=== PATIENT | female | born 1960 | race Caucasian/White ===

== ENCOUNTER 2017-02-13 11:52 | Inpatient (IN) | payer MEDICARE, MEDICAID ==
[~2017-02-13] VITALS: Ht 160 cm; Wt 37.6 kg
--- NOTE | ~2017-02-13 | CON ---
PATIENT'S NAME: CONCHITA GREENE [facility] AGE: 56 Y [address] ROOM: [place] [address] LOCATION: [facility] ADMIT DATE: 02/13/2017 Consultation DISCHARGE DATE: FAMILY PHYSICIAN: Physician, Unknown ATTENDING PHYSICIAN: Lizette Shane DATE OF CONSULTATION: 02/14/2017 CARDIOLOGY CONSULT REASON FOR CARDIOLOGY CONSULT: Shortness of breath, increased proBNP, and questionable congestive heart failure. HISTORY OF PRESENT ILLNESS: This is a 56-year-old female, admitted with complaints of shortness of breath and altered mental status after being evaluated by her primary care provider. She presents to the emergency department after the primary care provider noted shortness of breath as well as decreased mental acuity. In the emergency department, she continued to answer questions very vaguely. Today, she states she still has complaints of shortness of breath the same as when she was admitted, and intermittently states "I hurt." In between her hurt statement, she is eating breakfast, and denies any nausea or vomiting. A majority of her medical history is obtained from chart review due to the patient's nonspecificity when questioned about health status and presentation to the hospital. At the time of this consult, she is resting comfortably in chair, appears to be in mild discomfort with some shortness of breath noted. PAST MEDICAL HISTORY: 1. Hypertension. 2. History of lung cancer with pneumonectomy in 2008. 3. Renal cancer with a left partial nephrectomy in 2016. FAMILY HISTORY: There is noted history of a grandmother with breast cancer and a grandfather with lung cancer, and an another grandfather with colon cancer. SOCIAL HISTORY: The patient is a former cigarette smoker. She smoked 1 pack of cigarettes per day for a total of 30 years and quit smoking in 2010. No noted history of alcohol or illicit drug use. CURRENT MEDICATIONS: 1. Protonix 40 mg IV daily. 2. Sodium chloride IV. PATIENT'S NAME: CONCHITA GREENE [facility] AGE: 56 Y [address] ROOM: [place] [address] LOCATION: [facility] ADMIT DATE: 02/13/2017 Consultation DISCHARGE DATE: FAMILY PHYSICIAN: Physician, Unknown ATTENDING PHYSICIAN: Lizette Shane 3. Lipitor 80 mg p.o. daily in the evening. MEDICATION ALLERGIES: 1. Penicillin causing hives. 2. Morphine causing hives. REVIEW OF SYSTEMS: Pertinent positive review of systems listed in the HPI. All other review of systems evaluated and negative. DIAGNOSTICS: [facility] evaluation shows sodium of 138, potassium 4.9, BUN of 5, creatinine 0.8, and a glucose of 116. There was a CK-MB of 1.3, and troponin I of less than 0.04. PHYSICAL EXAMINATION: VITAL SIGNS: Temp 97.7, pulse 79, respirations 18, blood pressure 163/88, and O2 saturation 96% on 1 L nasal cannula. The patient weighs 35.5 Kg. SKIN: Collins, warm, and dry. EYES: Sclerae clear. No xanthelasmas. ENT: Oral mucosa is pink and moist. No jugular venous distention. No carotid bruits. CHEST: Respirations are even and mildly labored. Lung sounds are coarse throughout lung moe, and she does have a productive cough. HEART: Regular rate and rhythm. Normal S1, S2. ABDOMEN: Soft and nontender. MUSCULOSKELETAL: Equal muscle strength to upper and lower extremities bilaterally against resistance. EXTREMITIES: Peripheral pulses palpable. No clubbing, cyanosis, or edema. PSYCH: Does answer questions appropriately, but her mood and affect are notedly withdrawn. IMPRESSION AND PLAN: Per Dr. Lolis Mondragon: 1. Shortness of breath and cough with a proBNP of 3027. No signs of excessive fluid overload, and she does have a very harsh productive cough. We will check an echocardiogram to fully evaluate ejection fraction as well as look for wall motion and valvular abnormalities. 2. Acute CVA in the right parietal lobe. Currently, under the care of Neurology. 3. Acute encephalopathy. 4. History of lung cancer with pneumonectomy. 5. History of renal cancer. The patient currently has no cardiac issues. She appears euvolemic, and we will follow up with the results of that echo. Her elevated proBNP is likely PATIENT'S NAME: CONCHITA GREENE [facility] AGE: 56 Y [address] ROOM: [address] [address] LOCATION: [facility] ADMIT DATE: 02/13/2017 Consultation DISCHARGE DATE: FAMILY PHYSICIAN: Physician, Unknown ATTENDING PHYSICIAN: Lizette Shane secondary to pulmonary disease. Her shortness of breath and cough are likely secondary to bronchitis or a pulmonary process. With the patient's admission of CVA and previous history of hypertension, considering CASEY inhibitor when neurologically stable. We will continue to monitor, evaluate, and treat as appropriate. Thank you for this consult. Thank you for allowing [facility] to interact in the care of the patient. BIJAN MANCINI APRN FOR MD MARILU BOYLE/aleah /[id number] d: 02/14/177 t: 02/21/17 1239, CONSULTATION REPORT
--- NOTE | ~2017-02-13 | CON ---
PATIENT'S NAME: CONCHITA GREENE [facility] AGE: 56 Y [address] ROOM: [place] [id number] LOCATION: [facility] ADMIT DATE: 02/13/2017 Consultation DISCHARGE DATE: FAMILY PHYSICIAN: PHYSICIAN, UNKNOWN ATTENDING PHYSICIAN: ZAHEER KENDRICK DATE OF CONSULTATION: 02/13/2017 CHIEF COMPLAINT: Right posterotemporal intraparenchymal hemorrhage, hemorrhagic transformation into right temporal ischemic stroke. HISTORY OF PRESENT ILLNESS: The patient is a 56-year-old female patient who was diagnosed today on noncontrast CT head to have a right posterotemporal intraparenchymal hemorrhage. The patient presented to the clinic with shortness of breath and confusion. She was then referred to the emergency where she was investigated. I was asked to assess the patient with regard to the hemorrhage. Just before I saw the patient, she had a brain MRI and that showed evidence of multiple ischemic strokes within the right frontal lobe, right temporal lobe, and right cerebellum as well. I met the patient on the Neuro-Trauma Unit. History gathering was limited given the patient's confusion. At the time of encounter, the patient was aware of speech difficulties. She had significant difficulty with word finding. She indicated that her symptoms started on Saturday and slowly progressed. She denied obvious weakness on her hands or feet. She denied vomiting or seizure. She denied trauma to the head. She denied chest pain. PAST MEDICAL AND SURGICAL HISTORY: History of lung cancer, pneumectomy, renal cancer, left partial nephrectomy, and hypertension. SOCIAL HISTORY: The patient is an ex-smoker. She drinks alcohol occasionally. ALLERGIES: LISTED IN THE PATIENT'S CHART. MEDICATIONS: Listed in the patient's chart. REVIEW OF SYSTEMS: It was unobtainable given the patient's confusion and dysphasia. PATIENT'S NAME: CONCHITA GREENE [facility] AGE: 56 Y [address] ROOM: [address] [address] LOCATION: [facility] ADMIT DATE: 02/13/2017 Consultation DISCHARGE DATE: FAMILY PHYSICIAN: PHYSICIAN, UNKNOWN ATTENDING PHYSICIAN: ZAHEER KENDRICK FAMILY HISTORY: Noncontributory to the patient's presentation. PHYSICAL EXAMINATION: GENERAL: The patient was cooperative and pleasant. VITAL SIGNS: She was afebrile. Systolic blood pressure was less than 150. HEAD: It was atraumatic. Pupils were 3 mm and reactive. RESPIRATORY: She was not in any respiratory distress. CARDIOVASCULAR: She had palpable pulses on the upper extremities. MUSCULOSKELETAL: The patient has significant weight loss. She has lost the bulk of the upper and lower extremities muscles. NEUROLOGIC: She was alert, oriented to herself, but not to place or time. Pupils were 3 mm and reactive. Face was symmetric. She had difficulties with word finding. She followed simple commands. She was moving all 4 extremities with no obvious weakness. SKIN: No abnormal rash was seen. She had scars from the previous pneumectomy and partial nephrectomy. INVESTIGATIONS: 1. Noncontrast CT head done on February 13, 2017, around 2:00 p.m. It showed evidence of a small right posterior temporal intraparenchymal hemorrhage. It also showed an area of hypodensity around the hemorrhage and along the superior aspect of the right cerebellum. No intraventricular hemorrhage. No other hemorrhages were seen. 2. A brain MRI without and with contrast done on February 13, 2017, which I personally reviewed. The DWI sequence showed evidence of multiple ischemic strokes within the right cerebellum, right temporal lobe, and right frontal lobe. The MRI also confirmed hemorrhagic transformation within the right temporal ischemic stroke. 3. A CT angiogram of the head and neck done on February 13, 2017, which I personally reviewed. It showed no evidence of thrombus within the intracranial vessels. It showed evidence of bilateral carotid atherosclerotic disease, worse on the left side at the internal carotid artery origin. IMPRESSION: A 56-year-old female patient who presented with shortness of breath and a new onset confusion and speech difficulties, was found on brain CT scan and brain MRI to have a hemorrhagic transformation within large right temporal ischemic stroke. Her MRI also showed multiple ischemic strokes within the right frontal lobe and the right cerebellum. The etiology of the stroke is most likely thromboembolic. The CT angiogram did not show any significant disease in the right carotid territory to explain her stroke. RECOMMENDATIONS AND PLAN: PATIENT'S NAME: CONCHITA GREENE [facility] AGE: 56 Y [address] ROOM: [place] [address] LOCATION: [facility] ADMIT DATE: 02/13/2017 Consultation DISCHARGE DATE: FAMILY PHYSICIAN: PHYSICIAN, UNKNOWN ATTENDING PHYSICIAN: ZAHEER KENDRICK 1. Admission to the hospital under the hospitalist for observation and further workup of ischemic strokes. 2. Cardiology consultation, echocardiogram to assess for cardiac thrombus. 3. Keep the systolic blood pressure less than 150. 4. Noncontrast CT head on February 15, 2017, to reassess the hemorrhage. I discussed the imaging findings with the patient and the medical staff. I clearly indicated that she has hemorrhagic transformation within the right temporal ischemic stroke. I discussed the possible etiology of multiple ischemic strokes. Given the distribution, I think the etiology is most likely thromboembolic. I clearly indicated that the patient will require further investigations to pinpoint the cause of the strokes. The patient and the medical staff asked appropriate questions and those were answered to their satisfaction. It was pleasure taking care of this patient and thanks for having us involved. MD LIU MAURICE/aleah /[id number] d: 02/14/17 2145 t: 02/15/17 1501, CONSULTATION REPORT
--- NOTE | ~2017-02-13 | ENPV ---
Carotid Duplex Study Demographics Patient Name CONCHITA GREENE Date of Study 02/14/2017 Patient Number [id number] Gender Female Date of 1960 Age 56 Visit Number [id number] Height 63 Accession Number [id number] Weight 78 Referring Libertad Sun MD Interpreting Omi Amaya MD Physician Physician Physician Ordering Physician Libertad Sun MD Asic Engineer Head Of Sales Promotion Tierra Watson, RT,RVT,RDCS Conclusions Summary Possible high grade stenosis of left ICA. Recommend CTA carotids for further evaluation. Right side within normal limits. Procedure Type of Study: Cerebral:Carotid, Carotid Doppler Bilateral. Appropriate Use Criteria:9 Patient Status:Routine. Study Location:Inpatient Portable. Technical Quality:Adequate visualization. Velocities are measured in cm/s ; Diameters are measured in cm Carotid Right Measurements Carotid Left Measurements + +---------+---------+ + + + +--------+- -------+ + + !Location !PSV !EDV !Angle !%Stenosis ! !Location !PSV !E DV !Angle !%Stenosis ! + +---------+---------+ + + + +--------+- -------+ + + !Prox CCA !90 !18 !52 !1-39% ! !Prox CCA !96 !2 5 !56 !1-39% ! + +---------+---------+ + + + +--------+- -------+ + + !Dist CCA !67 !21 !56 !1-39% ! !Dist CCA !79 !2 1 !56 !1-39% ! + +---------+---------+ + + + +--------+- -------+ + + !Prox ICA !62 !18 !56 !1-39% ! !Prox ICA !55 !2 3 !56 !1-39% ! + +---------+---------+ + + + +--------+- -------+ + + !Mid ICA !64 !27 !56 !1-39% ! !Mid ICA !170 !6 9 !56 !60-79% ! + +---------+---------+ + + + +--------+- -------+ + + !Dist ICA !80 !32 !56 !1-39% ! !Dist ICA !122 !5 5 !56 !40-59% ! + +---------+---------+ + + + +--------+- -------+ + + !Prox ECA !105 ! !56 ! ! !Prox ECA !211 ! !56 !75-80% ! + +---------+---------+ + + + +--------+- -------+ + + !Vertebral !103 ! !56 !1-39% ! + +--------+- -------+ + + - Add'l Measurements:Subclavian PRV 94 cm/sICAPSV/CCAPSV - There is antegrade verte bral flow noted on the left side. 0.89.ICAEDV/CCAEDV 1.74. - Add'l Measurements:Subcl aditi PRV 122 cm/sICAPSV/CCAPSV 1.77.ICAEDV/CCAEDV 2.75. Impressions Right Impression Mild calcified plaque at the bifurcation . No significant elevation in velocities. Moderate intimal thickening. No color flow or Doppler signal noted in the Vertebral artery. Left Impression Left vertebral antegrade flow. Moderate to severe calcified plaque at the bifurcation and in mid ICA. Elevated velocities in ICA and proximal ECA. Signature dtt: ADAM CASTILLO dtd: 02/14/17 0183 Physician Self Edit
--- NOTE | ~2017-02-13 | CON ---
PATIENT'S NAME: CONCHITA GREENE [facility] AGE: 56 Y [address] ROOM: [address] [place] [id number] LOCATION: T ADMIT DATE: 02/13/2017 Consultation DISCHARGE DATE: FAMILY PHYSICIAN: PHYSICIAN, UNKNOWN ATTENDING PHYSICIAN: ZAHEER KENDRICK DATE OF CONSULTATION: 02/13/2017 HISTORY OF PRESENT ILLNESS: The patient was seen on 02/13/2017 upon her admission. I was asked by the hospitalist service to see Ms. Greene who presented with chief complaint about shortness of breath, but it was noted that she also had some mental status changes as well. The patient was sent into the emergency department by her primary care doctor who had noticed that she was experiencing some odd behaviors including shortness of breath and change in her mental status. She was answering questions inappropriately, seemed to be vague in her answers, but also was having some neglect of her left body as well. Upon her admission to the ER, she was consulted for evidence for an acute stroke. The MRI revealed a diffusion prolongation of a fairly large stroke in the right parietal lobe measuring around 6 cm x 3 cm. This also seemed to affect the right occipital lobe as well. There was some minor hemorrhagic transformation compared to the size of the stroke around 2.5 cm and Neurosurgery was asked to consult based upon the finding of some hemorrhagic conversion in this stroke. Thankfully, the areas of this stroke were not consistent with metastatic disease to the brain. However, multiple small infarcts were elsewhere seen in the brain suggesting that the patient possibly had other strokes in the past. A small subacute stroke was even seen in the right frontal lobe as well as the right cerebellum. Speaking to the hospitalist upon her admission, the suspicion was that there was a strong case that she may have a cardiac arrhythmia. However, at least a few hours in this hospital, she was observed on telemetry and no evidence for arrhythmia was seen. She remained in normal sinus rhythm. Echocardiogram was performed, which showed normal LV function with a good ejection fraction of 60% to 65%. Some moderate concentric left LV hypertrophy was seen with a mild aortic regurg and mild tricuspid valve regurg as well. Because this was a hemorrhagic conversion of a stroke upon presentation, there was no neurosurgical need for evacuation of a bleed and the patient had been doing significantly better, but was having some difficulty still with getting words out and she was making continuous errors in her speech. In discussions with the hospitalist, it appears that her symptoms actually started earlier in the week, perhaps even progressing prior to us seeing her on the initial neurologic exam. The patient as best as she could answer us, denied any weakness of her extremities or any feelings of nauseousness, vomiting, headaches, or change in her visual field. PRIOR MEDICAL HISTORY: PATIENT'S NAME: CONCHITA GREENE [facility] AGE: 56 Y [address] ROOM: [id number] [place], [place] [address] LOCATION: [facility] ADMIT DATE: 02/13/2017 Consultation DISCHARGE DATE: FAMILY PHYSICIAN: PHYSICIAN, UNKNOWN ATTENDING PHYSICIAN: ZAHEER KENDRICK She has a known history of lung cancer as well as a left partial nephrectomy and history of hypertension. SOCIAL HISTORY: She does not smoke currently, but she has smoked in the past. She drinks alcohol on occasion. PAST SURGICAL HISTORY: Pneumonectomy back in 2008 and nephrectomy in 2016. HOME MEDICATIONS: 1. Apresoline. 2. Protonix. 3. Trandate. 4. Tylenol. 5. Lipitor. FAMILY HISTORY: Lung cancer in the grandfather, breast cancer in her grandmother, and colon cancer in the grandfather. REVIEW OF SYSTEMS: The patient presents with an acute stroke into the right posterior aspect of the brain, also including the right occipital lobe. She actually presents more with a confusion state and word difficulty finding and perhaps a bit of neglect of her left hemibody. However, I did not appreciate any clear visual field neglect. She has no presentation of fever, chills, and headache. She does present here and continues to be mildly confused to words. PHYSICAL EXAMINATION: GENERAL: She was alert, awake, answered questions sometimes appropriately, but sometimes would confuse some words. Her sentences were short and psychotic. VITAL SIGNS: Revealed a pulse of 86 and regular, respiration rate 16, blood pressure 140/86, temperature is 97.5. Cranial nerves 2 through 12 was intact. I did not appreciate any facial droop. There was normal facial sensation. NECK: Supple in flexion and extension. NEUROLOGICAL: I did not appreciate any slurring of her speech. She moves her upper extremity and lower extremity, symmetric power, and did not appear to have any pronator drift when I posed her arms outward. Lower extremity power seemed to be symmetric and she was able to elevate her legs above the bed equally on both sides. Though the patient has very limited noticeable weakness when tested at the bedside, in attempts to walk the patient, she definitely demonstrates some weakness in her gait. It was hard to assess as to which side of her body was weak. PATIENT'S NAME: CONCHITA GREENE [facility] AGE: 56 Y [address] ROOM: [place] [address] LOCATION: [facility] ADMIT DATE: 02/13/2017 Consultation DISCHARGE DATE: FAMILY PHYSICIAN: PHYSICIAN, UNKNOWN ATTENDING PHYSICIAN: ZAHEER KENDRICK ASSESSMENT AND PLAN: Certainly, now, she presents with an odd type of expressive aphasia, not typical of right-sided strokes that would be normally seen in left-sided stroke, so her presentation is somewhat mixed in its etiology. Because of her history of paroxysmal atrial fibrillation in the distant past, when they assumed that she had a paroxysmal atrial fibrillation event, that may have led to this particular stroke and the other strokes that were noted in her brain. We simply cannot find evidence now that she is in and out of atrial fibrillation, but it is important that we find evidence for an arrhythmia by monitoring her closely on telemetry as well as even as an outpatient with a cardiac event monitor to pick pack worker atrial fibrillation. She certainly will require extensive speech therapy and her improvement expectation is somewhat variable at this time. She also will also require likely in-house physical therapy. We will hold an aspirin at this time due to the aspect of the hemorrhagic conversion and we will likely start an antiplatelet agent as soon as it is clearly safe that the patient is improving in her mental status. The start of atorvastatin 80 mg p.o. q.h.s. has been done. Again, a close watch is in order to rule out any evidence of arrhythmia in this patient who clearly has multiple stroke foci without clear evidence that her strokes are related to extensive atherosclerotic disease. We will continue to follow along with the Hospitalist Service. MD ROBY SMITH/aleah /[id number] d: 02/16/17299 t: 02/17/17 2240, CONSULTATION REPORT
--- NOTE | ~2017-02-13 | ER ---
PATIENT'S NAME: CONCHITA GREENE [facility] AGE: 56 Y [address] ROOM: [place] [address] LOCATION: [facility] ADMIT DATE: 02/13/2017 ER/Outpatient Report DISCHARGE DATE: FAMILY PHYSICIAN: PHYSICIAN, UNKNOWN ATTENDING PHYSICIAN: ZAHEER KENDRICK CHIEF COMPLAINT: Chest pain and shortness of breath. HISTORY OF PRESENT ILLNESS: The patient presents with her mother for evaluation of the above symptoms. She was seen in clinic today and felt to be acting very unusual and otherwise is short of breath. She has a known history of lung adenocarcinoma, status post left pneumonectomy and right wedge biopsy with known adrenal metastasis, status post resection. She also has had some surgery on one of her kidneys, but it is unclear what that is exactly. The chief bulk of her history is obtained from clinic note dated today. There may have been a renal cancer with left partial nephrectomy; however, it is unclear if that was renal, primary, or metastatic. Of note, the mother notes that the patient has been more confused and not acting quite right recently and that is the biggest reason for evaluation today. The patient has had a cough for the last several days to weeks and says she feels short of breath, but is having significant difficulty forming sentences appropriately and following commands. She did have some pain in her right-side after gardening yesterday, but cannot really elaborate any more than that. She did arrive by ambulance for further evaluation. She did receive some breathing treatments prior to arrival, which she thinks maybe help her feel better. She did get some pain medicine, which made her feel better as well. PAST MEDICAL HISTORY: As documented on the record and have been reviewed by me. SOCIAL HISTORY: As documented on the record and have been reviewed by me. MEDICATIONS: As documented on the record and have been reviewed by me. ALLERGIES: DOCUMENTED ON THE RECORD AND HAVE BEEN REVIEWED BY ME. REVIEW OF SYSTEMS: All systems were reviewed and negative except as noted in the HPI. PHYSICAL EXAMINATION: PATIENT'S NAME: CONCHITA GREENE [facility] AGE: 56 Y [address] ROOM: [place] [address] LOCATION: [facility] ADMIT DATE: 02/13/2017 ER/Outpatient Report DISCHARGE DATE: FAMILY PHYSICIAN: PHYSICIAN, UNKNOWN ATTENDING PHYSICIAN: ZAHEER KENDRICK VITAL SIGNS: Blood pressure 168/93, pulse is 94, SpO2 is 100% on 3 L nasal cannula, and respiratory rate approximately 24. GENERAL: Age-appropriate female, frail appearance, in very mild respiratory distress, no outward signs of pain with anxious affect. NEUROLOGIC: The patient is awake. She has word-finding difficulty, but no dysarthria. She does give some inappropriate answers and is not oriented to situation. She does follow commands in all extremities. She is unsteady on her feet, but is able to walk on her own. No obvious other gross abnormalities. HEENT: Normocephalic, atraumatic. Eyes are PERRL. Oropharynx is clear and moist. NECK: Supple. Trachea is midline. CHEST: Heart is regular rate and rhythm. Borderline tachycardia. LUNGS: Markedly diminished breath sounds on the left hemithorax. Right breath sounds are very coarse throughout. No significant wheezes appreciated with good air entry bilateral. ABDOMEN: Scaphoid and nontender. No obvious masses, rebound, or guarding. There is tenderness over the right costal margin in the midaxillary line. BACK: Nontender to palpation throughout. No CVA tenderness. EXTREMITIES: Without deformities or edema. SKIN: Warm, dry, and intact. LABS AND X-RAYS: Chest x-ray shows more prominence of the vasculature in the right lung cephalad; otherwise, postoperative changes as expected. Head CT with area of hemorrhage, MRI with no masses, but hemorrhage. Labs: Procalcitonin is below threshold, troponin I is below threshold, CRP is 1.27, free T4 and TSH within limits, pro-BNP is 3027, CMS is notable for a creatinine of 0.8, GFR greater than 60; otherwise, no significant abnormalities. Amylase and lipase are within range. CBC with an elevated hemoglobin of 18.7, chronic, D-dimer 0.39. INR 0.99. EKG reveals sinus rhythm, rate of 90 with grossly normal intervals and left axis. There is inversion of the P waves, but otherwise grossly stable morphologies compared to prior EKGs. IMPRESSION: 1. Acute encephalopathy, secondary to stroke with hemorrhagic transformation. 2. Elevated pro-BNP in the setting of possible heart failure without peripheral signs of volume overload. 3. Status post left pneumonectomy, secondary to lung adenocarcinoma with mets to the right lung and the adrenal. 4. Kidney cancer, unclear if primary or metastatic, status post partial resection. EMERGENCY DEPARTMENT COURSE: PATIENT'S NAME: CONCHITA GREENE [facility] AGE: 56 Y [address] ROOM: [address] [place], [place] [address] LOCATION: [facility] ADMIT DATE: 02/13/2017 ER/Outpatient Report DISCHARGE DATE: FAMILY PHYSICIAN: PHYSICIAN, UNKNOWN ATTENDING PHYSICIAN: ZAHEER KENDRICK The patient was seen and evaluated as above. She was taken off oxygen and saturated in the mid 90s without difficulty. She has stabilized significantly. She will need admission to the hospital. Based on her current presentation, the multiple areas of ischemia and hemorrhage are most likely causing her chief complaint, which is the confusion today. For that reason, we will admit the patient to Dr. Maurer, neurosurgeon, for further evaluation and treatment. The elevated pro-BNP and some cough issues appear to be chronic according to family. Those will be deferred to Dr. Maurer's discretion for hospitalist consult and further management. All questions were answered and the patient was admitted for further evaluation and treatment of acute intraparenchymal hemorrhage, secondary to ischemic stroke. MD RAGHAV CISNEROS/aleah /[id number] d: 02/14/17 0049 t: 02/26/17 1721, OUTPATIENT REPORT
--- NOTE | ~2017-02-13 | ECHO ---
Transthoracic Echocardiography Report (TTE) Demographics Patient Name CONCHITA GREENE Date of Study 02/14/2017 Patient Number [id number] Visit Number [id number] Date of 1960 Room Number G6221 Gender Female Number Age 56 year(s) Referring Libertad Sun MD Slurry Control Operator Helper Tierra Watson, Physician RT,RVT,RDCS Physician Interpreting Alanna Danielle MD Space Systems Operations Superintendent Physician Supervising Ordering Libertad Sun MD, MD/MLP Physician Nurse Stress Medical Technologist Generalist Conclusions Contractility Score Summary Normal Left Ventricular contractility was noted. Summary Normal LV size and systolic function. The estimated left ventricular ejection fraction is 60-65%. Moderate concentric left ventricular hypertrophy. Left sided pleural effusion present. There is mild aortic regurgitation by color Doppler. Mild tricuspid regurgitation by color Doppler. No evidence of pericardial effusion. IVC imaging is consistent with normal RA pressures. Procedure Type of Study TTE procedure:2D Echocardiogram, M-Mode, Doppler , Color Doppler. Procedure Date Date: 02/14/2017 Start: 01:05 PM Study Location: Inpatient Portable Technical Quality: Limited visualization due to body habitus. Indications:Congestive heart failure. Additional Indications:CVA Appropriate Use Criteria: 9 Patient Status: Routine HR: 87 bpm BP: 119/65 mmHg M-Mode/2D Measurements LV Diastolic Dimension: 3.14 cm LV Systolic Dimension: 1.8 cm LV Septum Diastolic: 1.56 cm LV Septum Systolic: 1.52 cm LV PW Diastolic: 0.96 cm LV PW Systolic: 1.07 cm AO Root Dimension: 2.8 cm RV Diastolic Dimension: 2.36 cm AV Cusp Separation: 1.7 cm EF Estimated: 65 % LA Dimension: 3.1 cm MV EPSS: 0.5 cm LVOT: 1.9 cm Doppler Measurements PV Peak Velocity: 0.86 m/s PV Peak Gradient: 2.92 mmHg Findings Left Ventricle Moderate concentric left ventricular hypertrophy. Right Ventricle Poor visualization of right ventricle. No apical window. Left Atrium Normal left atrial size. Right Atrium Normal right atrial size. IVC imaging is consistent with normal RA pressures. Mitral Valve Normal mitral valve structure and function. Aortic Valve There is mild aortic regurgitation by color Doppler. Tricuspid Valve Mild tricuspid regurgitation by color Doppler. Pulmonic Valve Normal pulmonic valve structure and function. Pericardial Effusion No evidence of pericardial effusion. Miscellaneous Visualized portions of the aortic root and ascending aorta appear normal in size. Pleural Effusion Pleural effusion present. Contractility Score LV regional wall motion:(0-Non visualized 1-Normal 2-Hypokinesis 3-Akinesis 4-Dyskinesis 5-Aneurysm) Signature dtt: MOR STRICKLAND dtd: 02/14/17 1965 Physician Self Edit
--- NOTE | ~2017-02-13 | HP ---
PATIENT'S NAME: CONCHITA GREENE [facility] AGE: 56 Y [address] ROOM: [address] [address] LOCATION: [facility] ADMIT DATE: 02/13/2017 History & Physical DISCHARGE DATE: FAMILY PHYSICIAN: PHYSICIAN, UNKNOWN ATTENDING PHYSICIAN: ZAHEER KENDRICK DATE OF SERVICE: CHIEF COMPLAINT: Acute CVA, acute hemorrhagic conversion of CVA. HISTORY OF PRESENT ILLNESS: This is a 56-year-old female with history of hypertension; history of lung cancer, status post resection and left pneumonectomy in 2008, also has a history of renal cancer on the left side, status post partial nephrectomy in 2016, presents to the emergency room initially from her primary care physician's office for complaints of shortness of breath as well as generalized confusion. The patient was apparently complaining of left-sided sharp chest pain and some shortness of breath initially upon arrival to her primary care physician's office earlier in the day; however, her mental status continued to change during that visit, and the patient was subsequently sent to the emergency room following that. Upon evaluation in the emergency room, a CAT scan of the head showed a possible area of hemorrhage in the posterior right parietal lobe, and subsequent MRI showed a right parietal hemorrhage that is consistent with CT finding as well as additional smaller areas of what appeared to be a subacute ischemic infarct in the right frontal lobe and right cerebellum. The patient during my evaluation is awake, and appears alert, and appears to actually understand the questions that I am asking her, but does appear to have trouble in word finding, and her presentation appears to be consistent with expressive aphasia, although the stroke area is on the right side. There is a chance the patient might be right dominant in any case. Otherwise, the patient denies any chest pain or shortness of breath, and is resting comfortably in bed without much problem. Difficult to assess if there is a component of encephalopathy and confusion to this, but from what I could gather, it does appear that she can actually follow command. PAST MEDICAL HISTORY: 1. History of lung cancer, status post pneumonectomy in 2008. 2. History of renal carcinoma, status post left partial nephrectomy in 2016. 3. Hypertension. FAMILY HISTORY: Has a history of breast cancer in her grandmother, lung cancer in her grandfather, and colon cancer in her grandfather. PATIENT'S NAME: CONCHITA GREENE [facility] AGE: 56 Y [address] ROOM: [address] [address] LOCATION: [facility] ADMIT DATE: 02/13/2017 History & Physical DISCHARGE DATE: FAMILY PHYSICIAN: PHYSICIAN, UNKNOWN ATTENDING PHYSICIAN: ZAHEER KENDRICK SOCIAL HISTORY: No drug use, former smoker, and occasional alcohol use. REVIEW OF SYSTEMS: All systems reviewed and were negative except as mentioned in the HPI. PHYSICAL EXAMINATION: VITAL SIGNS: Blood pressure 142/67, pulse 84, respiratory rate 18, temperature 97.7, and saturating 98% on 2 L of nasal cannula. GENERAL: The patient is awake, alert, and oriented x3, however, expressive aphasia. HEART: S1, S2. Regular rate and rhythm. CHEST: Clear to auscultation bilaterally. HEENT: Moist mucous membranes. No scleral icterus or conjunctival pallor noted. ABDOMEN: Soft, nontender, nondistended. Positive bowel sounds. SKIN: Without rash or lesions. NEUROLOGIC: Expresses trouble word-finding. Appears to have a 2/5 strength on the left upper extremity, but overall unable to assess if the patient is having trouble following command or indeed has weakness on that side. MUSCULOSKELETAL: No joint tenderness, muscle tenderness, or effusions noted. ASSESSMENT AND PLAN: 1. Acute cerebrovascular accident involving multiple locations on the right parietal lobe. Per imaging, stroke appears acute to subacute. Noting involvement of multiple locations, embolic type stroke from paroxysmal atrial fibrillation or a carotid disease is high in the differential. We will continue to monitor the patient on telemetry to pickle water pump operator paroxysmal atrial fibrillation. We will also get a 2D echo and carotid Dopplers. If indeed the patient does not exhibit signs of atrial fibrillation on telemetry during hospitalization, she would need an event monitor in going forward. Cardiology is already involved in the patient's case as well. 2. Hemorrhagic conversion of subacute cerebrovascular accident. At this point, Dr. Maurer from Neurology had seen her and there is nothing neurosurgical to offer at this point. We will hold off on starting blood thinners including aspirin until at least a repeat CT scan of the brain was done in the morning. We will await Dr. Maurer's recommendation as to when to safely start aspirin. 3. Acute encephalopathy. This is related to acute and subacute stroke. 4. Expressive aphasia. Again, this is related to acute cerebrovascular accident involving multiple locations on the right parietal lobe. Will work with Speech and Physical Therapy, and hopefully, she will be able to regain some of her function back. 5. Hypertension. We will hold her blood pressure medications right now and PATIENT'S NAME: CONCHITA GREENE [facility] AGE: 56 Y [address] ROOM: [place] [address] LOCATION: [facility] ADMIT DATE: 02/13/2017 History & Physical DISCHARGE DATE: FAMILY PHYSICIAN: PHYSICIAN, UNKNOWN ATTENDING PHYSICIAN: ZAHEER KENDRICK allow for permissive hypertension; however, we will treat if blood pressure is above 160 systolic due to hemorrhagic conversion. 6. Shortness of breath. This can be perhaps related to congestive heart failure exacerbation. We will hold off on giving IV fluids, and we will await Cardiology evaluation as well. CT/PE negative for pulmonary embolism. 7. Pulmonary hypertension. This is related to the patient's chronic lung disease. 8. Secondary polycythemia. This is most likely again related to the patient's chronic hypoxia and lung issues. 9. History of lung cancer, status post left pneumonectomy in 2008. 10. History of renal cell carcinoma, status post partial nephrectomy of left kidney in 2015. The patient is known to Dr. Nieves. 11. Deep venous thrombosis prophylaxis. We will use sequential compression devices. ZAHEER KENDRICK MD BG/modl /[id number] D: [id number] T: [id number] HISTORY & PHYSICAL
--- NOTE | ~2017-02-13 | CON ---
PATIENT'S NAME: CONCHITA GREENE [facility] AGE: 56 Y [address] ROOM: [place] [address] LOCATION: [facility] ADMIT DATE: 02/13/2017 Consultation DISCHARGE DATE: FAMILY PHYSICIAN: PHYSICIAN, UNKNOWN ATTENDING PHYSICIAN: ZAHEER KENDRICK DATE OF CONSULTATION: 02/14/2017 REHABILITATION CONSULT REASON FOR CONSULTATION: Ischemic and hemorrhagic CVA with bilateral upper and lower extremity weakness, loss of thought processes, and speech deficits. HISTORY OF PRESENT ILLNESS: This 56-year-old female was admitted to [facility] yesterday after undergoing the sudden onset of mental status changes, speech changes, and weakness of her extremities. She has a history of hypertension; lung cancer with resection; left pneumonectomy; and renal cancer, status post nephrectomy. She was presented to [facility] Emergency Room with complaints of shortness of breath and confusion. CT scan showed hemorrhage in the posterior right parietal lobe and subsequent MRI showed a right parietal hemorrhage consistent with the CT findings as well as an additional smaller area of a subacute ischemic infarct in the right frontal lobe and right cerebellum. She has been treated acutely by Neurology, and Neurosurgery, Dr. Maurer that no surgery would be of benefit. PAST MEDICAL HISTORY: Lung cancer, renal carcinoma, and hypertension. PAST SURGICAL HISTORY: Pneumonectomy 2008, nephrectomy 2015. MEDICATIONS: 1. Apresoline. 2. Protonix. 3. Trandate. 4. Tylenol. 5. Lipitor. SOCIAL HISTORY: Former smoker. Occasional alcohol use. FAMILY HISTORY: Breast cancer in grandmother. Lung cancer in grandfather. Colon cancer in PATIENT'S NAME: CONCHITA GREENE [facility] AGE: 56 Y [address] ROOM: [address] [place] [id number] LOCATION: [facility] ADMIT DATE: 02/13/2017 Consultation DISCHARGE DATE: FAMILY PHYSICIAN: PHYSICIAN, UNKNOWN ATTENDING PHYSICIAN: ZAHEER KENDRICK grandfather. REVIEW OF SYSTEMS: No blackout spells. She did have diminished mental status. No fevers or chills. No skin changes. No weight changes. No chest pain or shortness of breath. No nausea or vomiting. No dysuria or hematuria. She has been confused with altered mental status. No psychiatric disturbance. PHYSICAL EXAMINATION: GENERAL: She is awake, sitting in a chair. She speaks in short sentences but does not respond appropriately to stimuli. VITAL SIGNS: Blood pressure 130/70, pulse 83 and regular, respirations 16, and temperature 97.6. HEENT: Atraumatic and normocephalic. Pupils are equal, round, and reactive to light. Extraocular movements are intact. NECK: Supple and nontender. CHEST: Clear to auscultation. HEART: Regular rhythm. ABDOMEN: Soft and nontender without masses. SKIN: No rash or lesions. NEUROLOGIC: She has an expressive aphasia. Trouble with word finding. She has a 3 to 4 over 5 strength in her extremities depending on when I test. She appears to be a little stronger than when seen yesterday. She does not follow commands appropriately. When I asked her to move her elbows, she moves her fingers. MUSCULOSKELETAL: Shoulders, elbows, and wrists move without pain. No swelling or tenderness. Hips, knees, and ankles move without pain. No tenderness. She has good pulses. No edema. IMPRESSION: Diffuse widespread ischemic and hemorrhagic stroke involving multiple areas of the brain with residual speech deficits, expressive aphasia, dyskinesia, misinterpretation of commands, weakness of the upper and lower extremities, and loss of coordination. She is dependent in activities of daily living and has an unstable gait, history of paroxysmal atrial fibrillation, pulmonary hypertension, polycythemia, history of lung cancer and renal cancer status post nephrectomy and excision of portion of her lungs. PLAN: Intensive physical, occupational, and speech therapy. Orders have been written. Strengthening of the extremities. Once her medical condition is stable, she will be a candidate for inpatient rehab. DVT prophylaxis has been ordered. PATIENT'S NAME: CONCHITA GREENE [facility] AGE: 56 Y [address] ROOM: [place] [address] LOCATION: [facility] ADMIT DATE: 02/13/2017 Consultation DISCHARGE DATE: FAMILY PHYSICIAN: PHYSICIAN, UNKNOWN ATTENDING PHYSICIAN: ZAHEER KENDRICK MD ALIE KLEIN/aleah /[id number] d: 02/14/17 2347 t: 02/18/17 1411, CONSULTATION REPORT
--- NOTE | ~2017-02-13 | DS ---
PATIENT'S NAME: CONCHITA GREENE [facility] AGE: 56 Y [address] ROOM: [place] [address] LOCATION: T ADMIT DATE: 02/13/2017 Discharge Summary DISCHARGE DATE: 02/19/2017 FAMILY PHYSICIAN: Physician, Unknown ATTENDING PHYSICIAN: Lizette Shane ATTENDING PHYSICIAN: On the day of discharge is Dr. Lacie Lawrence. CONSULTING PHYSICIANS: 1. Dr. Maurer, Neurosurgery. 2. Dr. Curtis Flores, Neurology. 3. Dr. Ybarra, Cardiology. 4. Dr. Jacobsen, Physiatry. DISCHARGE DIAGNOSES: 1. 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 2. Expressive aphasia. 3. Hypertension/essential. 4. Depression. 5. Polycythemia. 6. History of lung cancer, status post left pneumonectomy. 7. History of renal cell carcinoma, status post left nephrectomy, partial. 8. Right lower lobe lung nodule. 9. Severe protein-calorie malnutrition. DISCHARGE MEDICATIONS: 1. Norvasc 5 mg p.o. daily. 2. Lacri-Lube 0.25 inch to affected eyes at bedtime for dry eyes. 3. Teargen 1 or 2 drops 3 times a day for dry eye. 4. ASA 81 mg daily. 5. Lipitor 80 mg p.o. q.h.s. 6. Fluoxetine 20 mg p.o. daily. 7. Lisinopril 10 mg p.o. daily. 8. Claritin 10 mg p.o. daily. 9. Protonix 40 mg p.o. daily. 10. MiraLAX 17 g p.o. daily. 11. Potassium chloride 10 mEq p.o. twice daily. 12. Pred forte 1% ophthalmic drops, one drop in each eye daily. 13. Tylenol 325 mg 2 tablets every 6 hours p.r.n. fever or pain. 14. Artificial tears 4 times a day p.r.n. dry eye. 15. Colace 100 mg p.o. t.i.d. p.r.n. stool softener. 16. Vistaril 50 mg p.o. q.6 hours p.r.n. anxiety. 17. Hydralazine 25 mg p.o. t.i.d. daily. RADIOLOGIC STUDIES: PATIENT'S NAME: CONCHITA GREENE [facility] AGE: 56 Y [address] ROOM: [address] [place] [address] LOCATION: [facility] ADMIT DATE: 02/13/2017 Discharge Summary DISCHARGE DATE: 02/19/2017 FAMILY PHYSICIAN: Physician, Unknown ATTENDING PHYSICIAN: Lizette Shane 1. Two views of the chest for right ribs on 02/13/2017, showed stable postoperative changes and fibrotic stranding within the right lung. No acute infiltrate, pneumothorax, or displaced rib fracture identified. 2. CT scan of the brain without contrast on 02/13/2017 showed a rounded area of hemorrhage at the posterior right parietal lobe measuring up to 2.4 cm with adjacent edema and localized mass effect. 3. MRI with and without contrast on 02/13/2017 showed right parietal hemorrhage and area of hemorrhagic transformation with a large area of acute ischemic infarct. Additional smaller areas of subacute ischemic infarct in the right frontal lobe on the right cerebellum, multiple chronic infarcts, and no evidence of metastatic disease. 4. CT of the head and neck on 02/13/2017 showed no arterial lesions in the head or neck to correlate with the acute right-sided infarct. No major vessel cut-off or high-grade stenosis. 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 5. Modified barium swallow on 02/14/2017 showed no aspiration with thin liquids, and no aspiration or penetration with honey nectar, applesauce mixed with pudding or crackers. There was no significant pooling was noted in the valleculae or piriform sinuses either. 6. A CT scan of the head on 02/15/2017 for followup showed expected evolutionary changes and correlated with MRI 2 days prior, no new hemorrhage. 7. CT of the chest without contrast on 02/18/2017 was compared to prior CTs on 02/20/2016 and also 08/21/2016. There was a spiculated nodule densely along the right lower lobe staple line suspicious for recurrent malignancy. This measures 31 x 21 x 10 mm. They noted a right upper lobe ground-glass nodule appearing to be stable. There was a trace right pleural effusion. 8. Echocardiogram showed a left ventricular ejection fraction of 60%-65%. Moderate left ventricular hypertrophy, mild aortic regurgitation, mild tricuspid regurgitation. 9. Carotid Dopplers did show stenosis of the ICA. The lesion was on the left. HOSPITAL COURSE: Please refer to the admitting H and P dictated by Dr. Shane for further details outlined of the patient's presentation. The patient was admitted to inpatient for her acute CVA. Cardiology was consulted to see the patient's elevated proBNP of 3027 upon admission. They felt she was euvolemic and ordered, of course awaited, the echo. Speech saw her to do modified barium swallow to fully assess her abilities. Dr. Maurer also followed along and felt that she was stable from a neurosurgery perspective. The patient is able to adhere to a regular diet. The patient suffered from severe protein-calorie malnutrition, and supplements were offered with her meals. The patient had been complaining of rib pain, however, there was nothing found on CT nor plain films to explain this, and it did seem to get PATIENT'S NAME: CONCHITA GREENE [facility] AGE: 56 Y [address] ROOM: [place] [address] LOCATION: [facility] ADMIT DATE: 02/13/2017 Discharge Summary DISCHARGE DATE: 02/19/2017 FAMILY PHYSICIAN: Physician, Unknown ATTENDING PHYSICIAN: Lizette Shane throughout her hospitalization. The patient's lipid panel was at goal and really unremarkable. Cholesterol 157, triglycerides 67, HDL 91, VLDL 13. Dr. Jacobsen has seen the patient to evaluate if she was an inpatient rehab candidate. He did an assessment on 02/14/2017. He felt she was a candidate to go to rehab, but there were no beds currently available. We continued to monitor her and work with therapies. The patient continued to have expressive aphasia. Cardiology eventually signed off the case feeling she had no acute cardiac issues. Dr. Nieves has seen the patient as this is her oncologist secondary for the suspicion of polycythemia with a hemoglobin on 01/31/2017 of 19.8 with hematocrit 57.3. At that point, she had a therapeutic phlebotomy as an outpatient. Here, her hematocrit was 55.9 and decreased with some gentle hydration to 45.4. She did not receive a phlebotomy here in the hospital but wondered if this could have contributed to her stroke. We did have Dr. Corea see the patient in consultation given the findings on the CT scan of the chest. We did have to work with some medications to help with her blood pressure as it was not well controlled. The carotid Dopplers came back and did show the ICA stenosis on the left. We did ask Dr. Braga to see the patient in consultation concerning this. Ultimately, the patient was stable for discharge to the inpatient rehab floor. She was transferred there on 02/19/2017. She should adhere to a regular cardiac diet. She is not currently on a calorie count nor she is n.p.o. She is weightbearing status as tolerated. She should undergo physical therapy, occupational therapy, and speech therapy. We can use oxygen to keep her sats greater than 90%. She should be receiving supplements t.i.d. and p.r.n. given her protein-calorie malnutrition. Dr. Corea will continue to follow the patient in inpatient rehab, and ultimately a PET scan will be ordered for this patient to follow up on her CT nodules. Thank you for allowing us to help care for this patient. This discharge took greater than 35 minutes and included coordinating of care, reviewing medications, and educating the patient. VANESSA CHERY PA-C FOR MD SHERIE MAGALLANES/aleah /[id number] CC: Vinicius Corea MD PATIENT'S NAME: CONCHITA GREENE [facility] AGE: 56 Y [address] ROOM: [address] [address] LOCATION: [facility] ADMIT DATE: 02/13/2017 Discharge Summary DISCHARGE DATE: 02/19/2017 FAMILY PHYSICIAN: Physician, Unknown ATTENDING PHYSICIAN: Lizette hSane MD d: 02/20/17 0347 t: 02/25/17 1411, DISCHARGE SUMMARY
[~2017-02-13 11:52] MED LIST changes: -PRED FORTE 1%5 ML OPHTH; -RESTASIS 0.05%1 VIAL OPHTH; -TYLENOL325 MG PO
[2017-02-13 12:23] LABS: BASOPHIL % 0.4 %; EOSINOPHIL % 0.2 %; HEMATOCRIT 55.9 % (33.0-46.0); HEMOGLOBIN 18.7 g/dL (10.0-15.0); IMMATURE GRANULOCYTE % 0.4 %; LYMPHOCYTE # 0.6 K/uL (0.8-4.0); LYMPHOCYTE % 5.3 %; MCH 34.5 pg (27.0-34.0); MCHC 33.5 gm/dL (32.0-36.5); MCV 103.1 fl (83.0-98.0); MONOCYTE # 0.9 K/uL (0.0-1.0); MONOCYTE % 8.1 %; MPV 10.1 fl (9.4-12.4); NEUTROPHIL # (ANC) 9.3 K/uL (1.8-7.8); NEUTROPHIL % 85.6 %; NRBC % 0 /100WBC (0-0.00); RBC 5.42 M/uL (3.50-5.50); RDW-CV 14.1 % (11.9-14.6); WBC 10.8 K/uL (4.0-11.0)
[2017-02-13 12:33] LABS: INR - (THERAPEUTIC) 0.99 (0.92-1.07); PROTIME 10.4 SECONDS (9.8-11.4)
[2017-02-13 12:44] LABS: ALBUMIN 3.2 gm/dL (3.5-5.0); ALK PHOS 94 IU/L (33-138); ALT 36 IU/L (12-78); ANION GAP 11.9 (10.0-19.0); AST 33 IU/L (10-40); BLOOD UREA NITROGEN 5 mg/dL (6-24); CALCIUM 9.2 mg/dL (8.5-10.5); CHLORIDE 103 mMol/L (96-110); CO2 28 mMol/L (22-32); CREATININE 0.8 mg/dL (0.5-1.1); ESTIMATED GFR (MDRD EQUATION) > 60; POTASSIUM 4.9 mMol/L (3.7-5.1); SODIUM 138 mMol/L (135-145); TOTAL BILIRUBIN 0.8 mg/dL (0.0-1.5); TOTAL PROTEIN 7.2 g/dL (6.0-8.4)
[2017-02-13 12:47] LABS: PLATELET COUNT 137 K/uL (150-450)
[2017-02-13 13:32] LABS: BICARBONATE 28.5 mmol/L (18.0-23.0); LACTATE 0.9 mEq/L (0.50-1.60); PCO2 44 mmHg (35-45); PO2 67 mmHg (80-90)
--- NOTE | 2017-02-13 16:03 | NUR ---
Pt is 56 y/o female admit for CHF/recent confusion/head bleed for hospitalist. Pt alert but slightly confused and has trouble finding her words. Allergies to morphine,PCN. Red and yellow bracelets. Hx CVA,pulm htn,lung CA w mets,renal CA,partial left nephrectomy,CVA/TIA,depression,anxiety,PTSD,left pneumonectomy, overactive bladder,paralysis vocal cords. Follows commands but actions are delayed. Resides at home by herself.
[2017-02-13] MEDS ORDERED: TYLENOL325 MG PO (17:30)
[2017-02-13] MEDS ORDERED: PRED FORTE 1%5 ML OPHTH (17:30)
[2017-02-13] MEDS ORDERED: RESTASIS 0.05%1 VIAL OPHTH (17:30)
--- NOTE | 2017-02-13 18:35 | NUR ---
Significant Event: Patient admitted to floor at 1600 from the ER. Patient alert to person. Aphasic. Delayed response to commands. Moves all extremities spontaneouslu. NIHSS 4. VSS. No edema. Afebrile. Room air with sats in the mid 90s. LS coarse throughout. Mechanical soft diet. BS active X4. Voids per toilet. Numerous skin issues. See charting. R) hand PIV SLL. 1 assist with gaitbelt to commode. Patient is weak. Denies pain except when up in moving and then has right lower flank pain. Patient emotional about not be able to get words out. Pleasant and cooperative with cares. Follow up:
--- NOTE | 2017-02-14 03:45 | NUR ---
Significant Event: Alert to name. Able to state birthdate. Gets stuck on certain answers and then unable to answer next question. Aphasic. Able to make needs known. tearful at times. Her movements are delayed with command. Up 1 assist GB to commode 2 assist to bathroom. On tele. VSS. Placed on 1L of O2 during the night. Has overactive bladder. Mechanical soft diet. Has generalized bruising and scabs. IV to R) forearm running NS at 50ml/hr. Tylenol given for back pain. Follow up:
--- NOTE | 2017-02-14 11:30 | NUR ---
LUIS CVA DIET ED CONSULT NOTED. NOT APPROPRIATE FOR DIET RESTRICTIONS D/T UNDERWEIGHT.
--- NOTE | 2017-02-14 12:22 | NUR ---
Introduced self and role of care management to patient. She lives in [place] with her dog. She states that normally she is able to do all her own ADL's. She states that her mother lives close by and does assist as needed. She is very concerned about "why this happend". It is too early to know exactly what her discharge needs will be. She denies any needs at this time. Will continue to follow.
--- NOTE | 2017-02-14 15:12 | NUR ---
Significant Event: VSS, BP THIS AM WAS 160'S DO GAVE 1 DOSE OF HYDRALAZINE. PATIENT ALERT TO SELF, APHASIA NOTED. FOLLOWS COMMANDS. GERNERLIZED WEAKNESS, EQUAL STRENGTH. DID C/O HEADACHE THIS AM, RELIEVED WITH TYLENOL. ALSO HAD RT FLANK PAIN LATER MORNING, BUT HAS SUBSIDED AFTER A WARM BLANKET. RT SIDE LUNG SOUNDS REMAIN COARSE, HISTORY OF PNEUMONECTOMY IN LEFT SIDE. CURRENTLY ON ROOM AIR. UP WITH 1 ASSIST. WHEN SPEECH SAW PATIENT TODAY FOR ASSESSMENT, THEY FELT SHE WASNT SWALLOWING ADEQUATELY. MODIFED SWALLOW STUDY DONE, NOW ON REG DIET WITH THIN LIQUIDS. REMIND PATIENT TO KAROL BARRETT. IV INFUSING IN RT FOREARM. NIHSS = 4 TODAY. ALARMS ON FOR SAFETY. ACCUCHECKS Q 6HRS . Follow up: NEURO STATUS. MONITOR SWALLOWING. NIHSS.
--- NOTE | 2017-02-15 04:19 | NUR ---
Significant Event: Pt has aphasia. Pt is A&Ox3 and answers correctly orientation questions when given choices. NIHSS 6. VS stable, remains on RA. Did get 1 dose of hydralazine @ 0300 vitals d/t elevated BP. Rt lung sounds remain coarse. Pt has had thick, yellowish sputum cough. Pt is up x1 assist w/gb. Pt on cardiac diet w/thin liquids. Does need to be reminded to saqib shepherd. PIV RFA, NS @ 50. Accuchecks q6--think to get d/c'd? Follow up: Continue plan of care. Continue with therapy.
--- NOTE | 2017-02-15 14:00 | NUR ---
Spoke with patient and her son, Asia. Patient does have difficulty with word finding and saying the correct word/aphasia. Son says she lives alone in home in [place]. She has a couple of steps into the house and her washer and dryer on in the basement. She says she has a cane and walker. Son says she has just be using the walker the last few weeks. She had been doing her own ADL, cooking, cleaning, yardwork etc until recently. Talked with them about options of OP therapy, HHC, skilled care and inpatient rehab. Son would like inpatient rehab for her if qualifies. Reviewed her chart and Dr. Jacobsen did assess for rehab and felt would be a good candidate. Referral made to Jennifer dunham [facility]. They will assess her early next week. Will follow.
--- NOTE | 2017-02-15 15:25 | NUR ---
Spoke with patient and her son, Asia from [place]. Patient is aphasic and difficult at times to figure out what she is saying. She lives alone in her home in [place]. Son says she has cane and walker and had been using the walker for the last couple of weeks but wasn't before that. She was still doing her ADLs, cooking, cleaning, yardwork, etc. She says "not so good recently" at caring for her home and yard. Talked with them about OP therapy, skilled care and inpatient rehab. Son thinks it would be best if went to skilled care or inpatient rehab before going home. Reviewed her chart and Dr. Jacobsen did assess for inpt. rehab and recommends it when medically stable. Updated son. He says if able to go to inpatient rehab that is what they would like. Referral made to Jennifer. She says they should have some discharges early next week and they will assess patients and determine who is ready and who they will be able to accept. Will follow.
--- NOTE | 2017-02-15 19:28 | NUR ---
Significant Event:VSS, denies pain. Pt has expressive and receptive aphasia, A/O x 3, NIHSS 6, R lung sounds clear/diminished. Occasional cough noted, no sputum with coughs. Eats without choking, does tuck/chin with cueing. Pt participated with therapies. Up with SBA 1. RFA IV, NS @50ml/hr. Voids per BR, tx with SBA 1. Son here most of shift, updated/answered questions. Follow up:Continue with therapy.
--- NOTE | 2017-02-16 05:48 | NUR ---
Significant Event: Patient is able to state month (5) and year and has difficulty with words. Understands orientation questions but very aphasic. 1A with cane and gait belt. Continuous IV fluids through R)wrist. Accuchecks q6h. Hydralazine given x1 for 175/92 blood pressure. 152/87 most recent blood pressure. Other VSS on room air. Accuchecks q6h. NIHHS 3. Strong throughout upper and lower extremities and denies numbness/tingling. Denies pain or discomfort. Follow up:
--- NOTE | 2017-02-16 16:01 | NUR ---
Significant Event: Alert, aphasic, difficulty responding to orientation questions. SBP 140-150, HR 70-90, afebrile, sats high 90's room air. Up with 1 assist, cane. Tylenol given for headache. Doesn't use call light consistently. Orders ok family to take outside. Follow up: Carotid U/S ordered today, not yet done.
[2017-02-17 03:14] LABS: BASOPHIL % 0.4 %; EOSINOPHIL # 0.1 K/uL (0.0-0.5); EOSINOPHIL % 1.2 %; HEMATOCRIT 45.3 % (33.0-46.0); IMMATURE GRANULOCYTE % 0.3 %; LYMPHOCYTE # 0.6 K/uL (0.8-4.0); LYMPHOCYTE % 8.8 %; MCH 34.2 pg (27.0-34.0); MCHC 33.1 gm/dL (32.0-36.5); MCV 103.2 fl (83.0-98.0); MONOCYTE # 0.7 K/uL (0.0-1.0); MONOCYTE % 10.9 %; NEUTROPHIL # (ANC) 5.2 K/uL (1.8-7.8); NEUTROPHIL % 78.4 %; NRBC % 0 /100WBC (0-0.00); RBC 4.39 M/uL (3.50-5.50); RDW-CV 13.9 % (11.9-14.6); WBC 6.7 K/uL (4.0-11.0)
[2017-02-17 03:15] LABS: PLATELET COUNT 106 K/uL (150-450)
[2017-02-17 03:28] LABS: ALBUMIN 2.4 gm/dL (3.5-5.0); ANION GAP 10.8 (10.0-19.0); BLOOD UREA NITROGEN 9 mg/dL (6-24); CALCIUM 7.9 mg/dL (8.5-10.5); CHLORIDE 110 mMol/L (96-110); CO2 26 mMol/L (22-32); CREATININE 0.5 mg/dL (0.5-1.1); ESTIMATED GFR (MDRD EQUATION) > 60; PHOSPHORUS 2.3 mg/dL (2.5-4.9); POTASSIUM 3.8 mMol/L (3.7-5.1); SODIUM 143 mMol/L (135-145)
--- NOTE | 2017-02-17 04:29 | NUR ---
Significant Event: Patient alert, oriented but aphasic. Speech is difficult for patient and patient becomes easily frustrated. NISS=2. Denies pain. VSS on room air. Up with standby assist. Pleasant and cooperative with cares. Follow up:continue to monitor
--- NOTE | 2017-02-17 09:54 | NUR ---
A - NUT F/U. APHASIC. PREFERS CHOCOLATE ENSURE. LABS: ACCUCHECK WNL-REAS, LAB 2.4, PHOS 2.3, PREALB 14, CRP 1.27. MEDS: PROTONIX, IVF, BOWEL. DIET: CARDIAC. INTAKE: BITES-75%. ENSURE TID D - INADEQUATE NUTRIENT INTAKE R/T DECREASED APPETITE AEB INTAKE RECORD. I - GOAL FOR INTAKE TO MEET 50-75% OF NEEDS BY NEXT ASSESSMENT. WILL CONTINUE ENSURE TID (CHOCOLATE) WILL ADD MAGIC CUP @ L M/E - WILL MONITOR INTAKE F/U IN 3-4 DAYS.
--- NOTE | 2017-02-17 15:52 | NUR ---
Significant Event: ALERT, APHASIC, IMPROVED FROM YESTERDAY. VSS, AFEBRILE, ROOM AIR. UP WITH 1 ASSIST, GAITBELT, CANE. DOES NOT USE CALL LIGHT CONSISTENTLY, ALARMS ON. NS TO R) WRIST AT 50 ML/HR. WENT OUTDOORS WITH SON. Follow up: MARY RODRIGUEZ WOULD LIKE PHONE CALL RELATED TO DISCHARGE PLANS, LEFT MESSAGE WITH VALERIA IN CARE MANAGEMENT.
--- NOTE | 2017-02-18 03:54 | NUR ---
Significant Event: The patient is Alert and Oriented x3, difficulty with word finding and at times needs choices but nods or states yes to the correct choice when asked questions. Denies Numbness and Tingling. Moves all extremities spontaneously and to command. Up with SBA, gaitbelt and cane. NIHSS 4. VSS, Hypertensive 150's-160's SBP. On 1L oxygen while sleeping. PIV to the right wrist infusing NS at 50ml/hr. Constipated gave colace. Alarms on for safety. Bruising to extremities and scattered abrasions to body. Order to D'c accu checks this shift. Tylenol given for discomfort with night time meds. Order for CT chest without contrast this am for left lung nodule. Follow up:
[2017-02-18 05:04] LABS: BASOPHIL % 0.5 %; EOSINOPHIL # 0.1 K/uL (0.0-0.5); EOSINOPHIL % 1.6 %; HEMATOCRIT 45.4 % (33.0-46.0); HEMOGLOBIN 14.8 g/dL (10.0-15.0); IMMATURE GRANULOCYTE % 0.3 %; LYMPHOCYTE # 0.5 K/uL (0.8-4.0); MCH 34.2 pg (27.0-34.0); MCHC 32.6 gm/dL (32.0-36.5); MCV 104.8 fl (83.0-98.0); MONOCYTE # 0.6 K/uL (0.0-1.0); MONOCYTE % 9.5 %; MPV 10.5 fl (9.4-12.4); NEUTROPHIL # (ANC) 5.1 K/uL (1.8-7.8); NEUTROPHIL % 80.1 %; NRBC % 0 /100WBC (0-0.00); PLATELET COUNT 112 K/uL (150-450); RBC 4.33 M/uL (3.50-5.50); RDW-CV 13.8 % (11.9-14.6); WBC 6.4 K/uL (4.0-11.0)
[2017-02-18 05:19] LABS: ALBUMIN 2.5 gm/dL (3.5-5.0); ANION GAP 11.2 (10.0-19.0); BLOOD UREA NITROGEN 8 mg/dL (6-24); CALCIUM 8.1 mg/dL (8.5-10.5); CHLORIDE 110 mMol/L (96-110); CO2 25 mMol/L (22-32); CREATININE 0.4 mg/dL (0.5-1.1); ESTIMATED GFR (MDRD EQUATION) > 60; PHOSPHORUS 3.1 mg/dL (2.5-4.9); POTASSIUM 4.2 mMol/L (3.7-5.1); SODIUM 142 mMol/L (135-145)
--- NOTE | 2017-02-18 13:30 | NUR ---
Left [facility] for Jennifer on [facility] this a.m. Received call from Jennifer on [facility] and they can accept patient tomorrow. Spoke with patient, her son, Giovanni and her parents. Talked with them about inpatient rehab and answered their questions. Patient says she wants to stay here and family in agreement. Patient to transfer to [facility] tomorrow at 0900. Will follow.
--- NOTE | 2017-02-18 17:33 | NUR ---
Significant Event: Patient is A&O x3. Follows commands. Equal strength in all extremities. Denies numbness & tingling. Has slight R) side facial droop. Aphagic and has trouble with word finding. Pupils 4.0 & brisk. NIHSS = 3. VSS but is hypertensive. Started new BP med today and was affective. Did complain of some generalized aches. Gave Tylenol @ 0635 with relief noted. IV to R) FA infusing. Up with 1 assist, gait belt, and cane. Cooperative with cares. Follow up: Plan for [facility] 02/19 @ 0900.
--- NOTE | 2017-02-19 03:25 | NUR ---
Significant Event: A&Ox3 very aphasic able to nod yes and no and make her needs known. When give choices she is able to tell you what she wants. NIHSS 3 due to some slurred speech, aphasia, and slight facial droop. Up 1 assist GB and cane. VSS. Goal to keep SBP <150. RA lungs clear. Regular diet. Last BM 02/18/17. IV to R) forearm is SL. Tylenol given for headache during the night. Follow up: To [facility] at 0900
--- NOTE | 2017-02-19 08:15 | NUR ---
Patient alert and oriented x 3. Aphasia noted. Follows commands. Rt grasp very slightly weaker than left. Denies numbness/tingling. Pupils 4mm, brisk. Slightly right facial droop noted. Denies pain this am. Lungs clear and dim, absent on left side due to left pneumonectomy. Bowels active last bm 5-15. Iv in rt forearm saline locked. Up with standby assist and cane. VSS, goal to keep SBP <150. Oral meds control this well. BP this am was 162/93 and then 129/71 after meds. Alarms on for safety. Plan to transfer to [facility] this am.
== END 2017-02-19 14:56 | DRG 64 ==
LOC: GMED 11:52 → GPCU 13:30 → GNTU 13:30
PROVIDERS: Emergency Medicine; Internal Medicine Hematology & Oncology; Student in an Organized Health Care Education/Training Program; ADMIT Internal Medicine
DX: I61.9 Nontraumatic intracerebral hemorrhage, unspecified (principal); E43 Unspecified severe protein-calorie malnutrition; I63.9 Cerebral infarction, unspecified; G93.40 Encephalopathy, unspecified; I74.9 Embolism and thrombosis of unspecified artery; C79.70 Secondary malignant neoplasm of unspecified adrenal gland; I48.0 Paroxysmal atrial fibrillation; R47.01 Aphasia; D75.1 Secondary polycythemia; F32.9 Major depressive disorder, single episode, unspecified; I10 Essential (primary) hypertension; I27.2 Other secondary pulmonary hypertension; I65.22 Occlusion and stenosis of left carotid artery; Z85.528 Personal history of other malignant neoplasm of kidney; Z85.118 Personal history of other malignant neoplasm of bronchus and lung; Z86.79 Personal history of other diseases of the circulatory system; Z90.2 Acquired absence of lung [part of]; Z90.5 Acquired absence of kidney
CPT/HCPCS: A9577; C9113; J0360; J7030

== ENCOUNTER → 2017-02-13 | Outpatient (CLI) | payer MEDICARE, MEDICAID ==
[~2017-02-13] MED LIST: ALLEGRA180 MG PO; ARTIFICIAL TEAR15 ML OPHTH; CLARITIN10 MG PO; COLACE100 MG PO; DULCOLAX5 MG PO; MINIPRESS2 MG PO; MIRTAZAPINE7.5 MG PO; PRED FORTE 1%5 ML OPHTH; PRINIVIL OR ZES10 MG PO; PROZAC20 MG PO; RESTASIS 0.05%1 VIAL OPHTH; SEROQUEL200 MG PO; SEROQUEL50 MG PO; TYLENOL325 MG PO; VIBRAMYCIN100 MG; VIBRAMYCIN100 MG PO; VISTARIL50 MG PO; ZYRTEC10 MG PO
== END | disposition disaster alternative care site (69) ==
LOC: GAMB 11:32
DX: S29.9XXA Unspecified injury of thorax, initial encounter (principal); K35.80 Unspecified acute appendicitis; K59.00 Constipation, unspecified; I27.2 Other secondary pulmonary hypertension; I10 Essential (primary) hypertension; F32.9 Major depressive disorder, single episode, unspecified; R07.81 Pleurodynia; R41.0 Disorientation, unspecified; R06.02 Shortness of breath; R10.9 Unspecified abdominal pain; Z90.2 Acquired absence of lung [part of]; Z85.528 Personal history of other malignant neoplasm of kidney; Z79.899 Other long term (current) drug therapy; Z88.0 Allergy status to penicillin; Z88.5 Allergy status to narcotic agent
CPT/HCPCS: A0425; A0427; J2405; J3010

== ENCOUNTER 2017-02-19 15:10 | Inpatient (IN) | payer MEDICARE, MEDICAID ==
[~2017-02-19] VITALS: Ht 160 cm; Wt 38.0 kg
--- NOTE | ~2017-02-19 | HP ---
PATIENT'S NAME: CONCHITA GREENE [facility] AGE: 56 Y [address] ROOM: [address] [place], [place] [address] LOCATION: [facility] ADMIT DATE: 02/19/2017 History & Physical DISCHARGE DATE: FAMILY PHYSICIAN: PHYSICIAN, UNKNOWN ATTENDING PHYSICIAN: Leon Atkinson DATE OF SERVICE: HISTORY OF PRESENT ILLNESS: This 56-year-old lady is admitted for continuous medical treatment and intensive rehabilitation to Rehabilitation Unit at [place], [place] on 02/19/2017. 1. Unstable gait. 2. Dependent activities of daily and self-care. 3. Status post right posterior temporal intraparenchymal hemorrhagic stroke with evidence of multiple ischemic changes in the right frontal lobe, right temporal lobe, and right cerebellar lobe with difficulty in speech. This lady was seen initially in consult for rehabilitation by Dr. Jacobsen, who was covering me on my vacation and he recommended intensive rehabilitation for about 10 days or so aiming to discharge home on modified independence. She is at the present time alert, oriented. VITAL SIGNS: Vitals on admission are as follow: Blood pressure 162/93 to 145/87, temperature 97.5, pulse 86 and regular, and respiratory rate 18. She is 5 feet 3 inches and weighs 37.6 kg. ALLERGIES: SHE IS ALLERGIC TO PENICILLIN AND OPIOIDS. SHE CAN MOVE ALL 4 AT THE PRESENT TIME, WEIGHTBEARING TOLERATED. CURRENT MEDICATIONS: She is at the present time on the following medications: 1. Norvasc 5 mg p.o. daily. 2. Lacri-Lube quarter of an inch ophthalmic every night at bedtime. 3. Teargen 1 to 2 drops ophthalmic 3 times daily. 4. Aspirin 81 mg p.o. daily. 5. Lipitor 80 mg p.o. daily. 6. Protonix 40 mg p.o. daily. 7. Prozac 20 mg p.o. daily. 8. Prinivil or lisinopril 10 tablets p.o. daily. 9. Claritin-D 10 mg p.o. daily. 10. MiraLAX 17 g p.o. every day. PATIENT'S NAME: CONCHITA GREENE [facility] AGE: 56 Y [address] ROOM: [address] [place], [place] [address] LOCATION: [facility] ADMIT DATE: 02/19/2017 History & Physical DISCHARGE DATE: FAMILY PHYSICIAN: PHYSICIAN, UNKNOWN ATTENDING PHYSICIAN: Leon Atkinson 11. tablet 10 mg p.o. twice daily. 12. Prednisone acetate drops 1 drop ophthalmic every day. 13. Tylenol 325 to 650 q.6 hours, do not exceed acetaminophen 4 g q.24 hours. 14. Teargen 1 to 2 drops ophthalmic 4 times a day p.r.n. 15. Colace 100 mg p.o. b.i.d. 16. Restoril. 17. Hydroxyzine. 18. Vistaril 50 mg p.o. q.6 hours. 19. Hydralazine 25 mg p.o. 3 times daily. PAST MEDICAL HISTORY: She is at the present time with the past history of followin. Hypertension. 2. History of CA lung with pneumonectomy in 2008. 3. Renal cancer with left partial nephrectomy in 2015. 4. Reflux esophagitis. 5. Hypertension. ALLERGIES: SHE IS ALLERGIC TO PENICILLIN AND MORPHINE. AT THE PRESENT TIME, HER VITALS AND ON NEXT DAY ON 02/20 WERE FOLLOWS: BLOOD PRESSURE 145/87, TEMPERATURE 98.1, PULSE 85, AND RESPIRATIONS 16. CBC: WBC 6.9, RBC 4.70, HEMOGLOBIN 16.0, HEMATOCRIT 48.3, AND PLATELETS 184,000. CMS: 139 SODIUM, POTASSIUM 4.5, CHLORIDE 104, CO2 OF 28, BUN 11, CREATININE 0.5, AND GLUCOSE 99. UA NEGATIVE THROUGHOUT. PREALBUMIN 19.0. ASSESSMENT AND PLAN: At the present time, she can ambulate 300 feet with contact guard assistance and no direct assistive device. I will put her on intensive therapy, PT, OT, and Speech 3 hours per day, 15 hours per week for the coming about 10 days aiming to discharge at modified independence. All the above was explained to her in detail. She verbalized understanding and agreement. PATIENT'S NAME: CONCHITA GREENE [facility] AGE: 56 Y [address] ROOM: [address] [place], [place] [address] LOCATION: [facility] ADMIT DATE: 02/19/2017 History & Physical DISCHARGE DATE: FAMILY PHYSICIAN: PHYSICIAN, UNKNOWN ATTENDING PHYSICIAN: Leon Atkinson MD WMS/modl /[id number] D: [id number] T: [id number] HISTORY & PHYSICAL
--- NOTE | ~2017-02-19 | CON ---
PATIENT'S NAME: CONCHITA GREENE [facility] AGE: 56 Y [address] ROOM: [address] [place], [place] [address] LOCATION: [facility] ADMIT DATE: 02/19/2017 Consultation DISCHARGE DATE: 03/12/2017 FAMILY PHYSICIAN: Physician, Unknown ATTENDING PHYSICIAN: Leon Nielson DATE OF CONSULTATION: 03/05/2017 REFERRING PHYSICIAN: Vinicius Corea MD Team members reporting include Dr. Nielson; Jennifer Aldana, clinical social work therapist; Sara Jose RN; Delaney Rodriguez, PT; Tierra Haley, PT; Kyleigh Gleason, OT; Mary Ellen Alvarez, Speech Therapy; Sushila Lundberg, therapeutic rec; and Sister Eun Matias, Pastoral Care. CURRENT STATUS: Conchita is a 56-year-old woman admitted to our inpatient rehab unit following a CVA. She has a history of lung cancer. The patient is on a cardiac diet, taking Ensure Enlive t.i.d. and Magic Cup daily. Her prealbumin is 34 and stable. She can complete all of her transfers independently. She is able to ambulate independently. She can climb 12 stairs with one railing at mod I. She has met 06/15 long-term PT goals. The patient can dress her upper and lower body dressing independently; grooming, independent; bathing, standby; toilet and shower transfers, mod I; toileting, mod I; and feeding, independent. She has met all of her long-term OT goals. She can dress her upper body at standby; language and expression, minimal assistance; memory and problem solving, standby. Car transfers are currently at mod I. The patient does like prayer. The patient is going to be having radiation eventually and an event monitor. DISCHARGE PLAN: The patient is receiving 3 hours of PT, OT, and speech Saturday through Saturday. The patient has daily rehab, nursing, and physiatry involvement as well as therapeutic recreational services 4 days per week. The patient has shown functional improvement and is progressing. Please see her plan of care for specific goals. Plan is for the patient to discharge either to a [facility] facility or an assisted living facility. Continue to work on discharge planning. JENNIFER ALDANA FOR LEON NIELSON MD TD/modl PATIENT'S NAME: CONCHITA GREENE [facility] AGE: 56 Y [address] ROOM: [place] [address] LOCATION: [facility] ADMIT DATE: 02/19/2017 Consultation DISCHARGE DATE: 03/12/2017 FAMILY PHYSICIAN: , Amber ATTENDING PHYSICIAN: Leon Nielson /[id number] d: t: 03/18/17 1353, CONSULTATION REPORT
--- NOTE | ~2017-02-19 | PUL ---
PATIENT'S NAME: CONCHITA GREENE [facility] AGE: 56 Y [address] ROOM: [place] [address] LOCATION: [facility] ADMIT DATE: 02/19/2017 Pulmonary DISCHARGE DATE: FAMILY PHYSICIAN: PHYSICIAN, UNKNOWN ATTENDING PHYSICIAN: Leon Atkinson NAME OF PROCEDURE: Spirometry DATE OF PROCEDURE: February 25, 2017 TECH: ORLY Akers REASON FOR EXAM: Possible Radiation RESULTS: Spirometry does not demonstrate airflow obstruction. There is a suggestion of chest restriction, and there is no change post bronchodilator. Would consider complete PFTs with lung volumes and diffusing capacity. DENIS SHRESTHA MD SEP/ /[id number] dtt: 03/19/17 0824 , Denis Shrestha dtd: 02/27/17 1519
--- NOTE | ~2017-02-19 | DS ---
PATIENT'S NAME: CONCHITA GREENE [facility] AGE: 56 Y [address] ROOM: [address] [place] [address] LOCATION: [facility] ADMIT DATE: 02/19/2017 Discharge Summary DISCHARGE DATE: 03/12/2017 FAMILY PHYSICIAN: Physician, Unknown ATTENDING PHYSICIAN: Chaitanya Nielson This 56-year-old lady was admitted to rehab unit at [facility] on 02/19/2017, is discharged to go to [facility] in [place], [place] on 03/12/2017. She was admitted for, 1. Unstable gait. 2. Dependent activities of daily and self-care with some difficulty with Speech. All have improved and she is doing well. She will continue on there with PT/OT under her family physician care. She is at the present time alert and oriented x3. VITAL SIGNS: Blood pressure of 122/65, temperature 98.1, pulse 64, respirations 18. She can ambulate in excess of 600 feet without assistive device. She did ascend and descend 12 steps without much assistance except for a one side handrail. She is not to follow with me. She will follow with her family physician. She is to follow with Dr. Corea. Dr. Maurer as he sees fit. She must follow with her family physician as soon as possible. MEDICATION: 1. Artificial tears each night to the affected eye. 2. Teargen 1-2 drops ophthalmic three times a day. 3. Aspirin children 81 mg p.o. daily. 4. Lipitor 80 mg p.o. at bedtime. 5. Prozac 20 mg p.o. daily. 6. Prinivil, Zestril 10 mg p.o. daily, hold if systolic blood pressure below 110. 7. Claritin 10 mg p.o. daily. 8. Protonix 40 mg p.o. daily. 9. MiraLAX 17 g p.o. daily. 10. K-Tab 10 mEq p.o. twice daily. 11. Prednisolone acetate 0.5 mL one drop each eye ophthalmic daily. 12. Tylenol 650 q.6 hours, do not exceed acetaminophen 4 g q.24 hours. 13. Teargen 1-2 drops ophthalmic four times daily. 14. Dulcolax 10 mg rectally p.r.n. 15. Colace 100 mg 3 times daily. PATIENT'S NAME: CONCHITA GREENE [facility] AGE: 56 Y [address] ROOM: [address] [place], [place] [address] LOCATION: [facility] ADMIT DATE: 02/19/2017 Discharge Summary DISCHARGE DATE: 03/12/2017 FAMILY PHYSICIAN: Physician, Unknown ATTENDING PHYSICIAN: Chaitanya Nielson 16. Vistaril 50 mg q.6 hours as needed p.r.n. 17. MOM 30 mL daily. FINAL DIAGNOSES: 1. Unstable gait. 2. Dependent activities of daily and self-care with speech difficulty, improving. 3. Status post right posterior temporal intraparenchymal hemorrhagic stroke with multiple ischemic changes in right frontal lobe, right temporal lobe, and right cerebellar lobe, stable. 4. Hypertension. 5. Cancer of lung, status post pneumonectomy, right side. 6. Status post renal cancer, left partial nephrectomy in 2016. 7. Reflux gastric disease. 8. Depression. She will not drive until she is re-evaluated. All the above was explained to her. She verbalized understanding and agreement. CHAITANYA NIELSON MD WMS/modl /[id number] d: 03/12/17 1134 t: 03/15/17 0813, DISCHARGE SUMMARY
--- NOTE | ~2017-02-19 | CONS ---
PATIENT'S NAME: CONCHITA [facility]ENE [facility] AGE: 56 Y [address] ROOM: [address] [address] LOCATION: [facility] ADMIT DATE: 02/19/2017 Oncology Report DISCHARGE DATE: FAMILY PHYSICIAN: PHYSICIAN, UNKNOWN ATTENDING PHYSICIAN: Leon Atkinson RADIATION THERAPY CONSULTATION DATE OF SERVICE: REFERRING PHYSICIAN: Vinicius Corea MD INPATIENT CONSULTATION REQUESTING PHYSICIAN: The patient is seen at the request of Dr. Nieves. HISTORY OF PRESENT ILLNESS: The patient's history is long and complex, but basically she began smoking at age 18 and in February of 2009, after having a several month history of hemoptysis, had a chest x-ray, which showed a left hilar mass. Subsequent biopsy showed a poorly differentiated [id number] carcinoma of the lung. She was treated using Taxol and carboplatin as well as preoperative radiation therapy receiving 4500 cGy tumor dose using obliquely oriented moe covering the left upper lung mass. Subsequently she had a left pneumonectomy done at the [facility]. The histology at the time of the pathologic examination showed a poorly differentiated carcinoma which was staged T3, N0. She was followed periodically since that time by Dr. Nieves and in May of 2010, on a routine x-ray examination, a right adrenal mass was found and a right adrenalectomy was done with the finding of adenocarcinoma. In late 2014, she was noted to have a cavitary right lower lung mass which was noted to be growing and in October of 2015, a right wedge resection of this lesion was done with again finding of a grade 3 adenocarcinoma, negative margins at that time were obtained. Concurrent with that surgery a clear cell carcinoma of the left kidney was noted and a partial nephrectomy at the same surgical setting was done. In January of 2017, she was noted to have polycythemia and a therapeutic phlebotomy of 300 mL was done with the finding of preoperatively of a hematocrit of 57.0 and a hemoglobin of 19.7. Again a CT scan of the chest shows a lesion in the right lower lobe medially at the suture line from the area of the wedge resection and the patient is seen in this regard. She had been admitted very recently because of PATIENT'S NAME: CONCHITA [facility]ENE [facility] AGE: 56 Y [address] ROOM: [address] [address] LOCATION: [facility] ADMIT DATE: 02/19/2017 Oncology Report DISCHARGE DATE: FAMILY PHYSICIAN: PHYSICIAN, UNKNOWN ATTENDING PHYSICIAN: Leon Atkinson difficulty finding words and was found to have a CVA likely embolic and is noted to have moderate expressive aphasia with the MRI showing a small area of post ischemic hemorrhage. Again she was noted to have a hemoglobin that was elevated at 18 with a hematocrit of 55. We have been asked now to see the patient regarding the possible additional radiation to be given to the area of recurrent disease in the right lower lobe. Presently, she admits to having lost approximately 11-1/2 pounds. She has always been quite thin. She has noted moderate shortness of breath and does have some cough, but denies hemoptysis or colored sputum. She denies bony aches or pains though she does admit to discomfort in multiple areas of her body presumably from known degenerative arthritis. She denies headaches. She has no change in her vision, hearing, smell, taste, or swallowing. She is seen and examined in a wheelchair. PAST MEDICAL HISTORY: See the HPI though as noted she does admit to having smoked cigarettes for many years. ALLERGIES: MORPHINE AND PENICILLIN. CURRENT MEDICATIONS: Include: 1. Claritin 10 mg tablets. 2. Fluoxetine 20 mg tablets. 3. Lisinopril 5 mg tablets, and a stool softener. SOCIAL HISTORY: The patient is and lives alone. She does have two grown adult children, one of whom accompanies her in the room while being seen but who lives in [place]. 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 PHYSICAL EXAMINATION: GENERAL APPEARANCE: The patient is a very thin, malnourished, and frail appearing woman who has frequent difficulty expressing thoughts. HEENT: Her head is unremarkable. Eyes show no scleral icterus. The conjunctivae are clear. The extraocular movements are intact. The mouth is unremarkable. Mucous membranes are moist. NECK: No neck or supraclavicular adenopathy is present. There is no venous distention and no abnormality palpable in the thyroid. PATIENT'S NAME: CONCHITA [facility] AGE: 56 Y [address] ROOM: [address] [address] LOCATION: [facility] ADMIT DATE: 02/19/2017 Oncology Report DISCHARGE DATE: FAMILY PHYSICIAN: PHYSICIAN, UNKNOWN ATTENDING PHYSICIAN: Leon Atkinson CARDIOVASCULAR: There is a normal sinus rhythm, with no thrills or murmurs. CHEST: Breath sounds are absent on the left. There is an area just to the right of the midline posteriorly in the mid thoracic spine area of markedly decreased breath sounds. The remainder of the chest has normal breath sounds, but slightly coarse. ABDOMEN: Soft. No enlargement of liver or spleen is noted. No groin nodes are palpable. EXTREMITIES: Unremarkable except for a little in the way of muscular presence. The patient does have no tenderness on percussion over the spine. The right hand is somewhat shaky. NEUROLOGIC: The patient is alert and oriented and seems to comprehend the discussion regarding her present situation. She does have moderate expressive aphasia, but seems to be able to communicate adequately and particularly when things are interpreted to her by her son. ASSESSMENT: The patient at this point has regrowth of tumor in the right lower lung medially and I feel is probably a candidate for local radiation therapy possibly SBRT. The fact that she has had prior irradiation is essentially nullified because that lung has been surgically removed. I have discussed her situation with Dr. Corea, the medical oncologist who is working as a hospitalist and have suggested that we obtain a pulmonary function test, and the patient will be evaluated then by Dr. Russo upon his return next week. The patient remains in the long-term care unit because of the recent cerebrovascular accident and is receiving occupational therapy, physical therapy, and speech therapy. I have had a lengthy discussion with the patient and her son and have attempted to outline the need for further treatment as well as the possibility of making her breathing more difficult because of the unavoidable additional lung irradiation. They seem to understand and seemed to be agreeable to proceeding with whatever therapy recommendations we might come up with. MD LELO PAREDES/aleah /[id number] d: 02/22/17 2138 t: 04/03/17 1053, CONSULTATION REPORT
--- NOTE | ~2017-02-19 | PUL ---
PATIENT'S NAME: CONCHITA GREENE [facility] AGE: 56 Y [address] ROOM: [place] [address] [facility] ADMIT DATE: 02/19/2017 Pulmonary DISCHARGE DATE: FAMILY PHYSICIAN: PHYSICIAN, UNKNOWN ATTENDING PHYSICIAN: Leon Atkinson NAME OF PROCEDURE: Pulmonary function test DATE OF PROCEDURE: February 28, 2017 TECH: ORLY Akers REASON FOR PROCEDURE: Pre radiation RESULTS: 1. Spirometry does not demonstrate airflow obstruction and there is no change post bronchodilator. 2. Lung volumes demonstrate severe chest restriction. 3. Diffusing capacity is severely reduced. MD MONCHO JEONG/ /[id number] dtt: 03/19/17 0826 Yamila David E. dtd: 03/05/17 1500
--- NOTE | ~2017-02-19 | CON ---
PATIENT'S NAME: CONCHITA GREENE [facility] AGE: 56 Y [address] ROOM: [address] [place], [place] [address] LOCATION: [facility] ADMIT DATE: 02/19/2017 Consultation DISCHARGE DATE: FAMILY PHYSICIAN: PHYSICIAN, UNKNOWN ATTENDING PHYSICIAN: Leon Nielson DATE OF CONSULTATION: 02/26/2017 REFERRING PHYSICIAN: Vinicius Corea MD Team members reporting include Dr. Nielson; Jennifer Aldana, social studies department chair; Sara Jose RN; Tierra Haley, PT; Delaney Rodriguez, PT; Ofe Foster, OT; Mary Ellen Alvarez, Speech Therapy; Sushila Lundberg, therapeutic rec; and Sister Eun Matias, Pastoral care. CURRENT STATUS: Oanh Tyler is a 56-year-old woman, admitted to our inpatient rehab unit on 02/19/2017 following a CVA. The patient does have expressive aphasia. She has a history of hypertension, depression, polycythemia, history of lung cancer status post left pneumonectomy, history of renal cell carcinoma status post left nephrectomy partial, right lower lobe lung nodule, and severe protein calorie malnutrition. The patient is continent of bowel and bladder. Skin is okay. No pain issues. The patient is on a cardiac diet. She is getting Ensure Enlive t.i.d. and Magic cup every day. Prealbumin is at 34. The patient can complete all of her transfers independently. She can walk 600 feet with no assistive device, Mod I to independent. She can climb 12 stairs with one railing at mod I. She scored 54/56 on the Duque balance test. She has met 7/9 long-term PT goals. The patient can dress her upper and lower body at standby; grooming and bathing, standby; toilet and shower transfers, standby; and feeding, standby. She has met 6/13 long-term OT goals. Comprehension is at minimal assistance. Language and expression, moderate assistance. Memory and problem solving, moderate assistance. She is able to complete car transfers at standby assistance. The patient has been very open to pastoral care. DISCHARGE PLAN: The patient is receiving 3 hours. Of PT, OT, and speech Saturday through Saturday. The patient has daily rehab, nursing, and physiatry involvement as well as therapeutic recreational services 4 days per week. The patient has shown functional improvement and is progressing. Please see her plan of care for specific goals. Plan is for the patient to discharge to an assisted living facility when that can be arranged, we will need to do a consult with the [employer] regarding the patient's Medicaid to approve for that level of care. PATIENT'S NAME: CONCHITA GREENE [facility] AGE: 56 Y [address] ROOM: [address] [place] [address] LOCATION: [facility] ADMIT DATE: 02/19/2017 Consultation DISCHARGE DATE: FAMILY PHYSICIAN: PHYSICIAN, UNKNOWN ATTENDING PHYSICIAN: Leon Nielson JENNIFER ALDANA FOR LEON NIELSON MD TD/modl /[id number] d: 03/05/17 1227 t: 03/15/17 0816, CONSULTATION REPORT
--- NOTE | ~2017-02-19 | CON ---
PATIENT'S NAME: CONCHITA GREENE [facility] AGE: 56 Y [address] ROOM: [place] [address] LOCATION: [facility] ADMIT DATE: 02/19/2017 Consultation DISCHARGE DATE: FAMILY PHYSICIAN: PHYSICIAN, UNKNOWN ATTENDING PHYSICIAN: Leon Atkinson DATE OF CONSULTATION: 02/20/2017 REFERRING PHYSICIAN: Vinicius Corea MD REASON FOR CONSULT: Left internal carotid artery stenosis on duplex with recent stroke. HISTORY OF PRESENTING ILLNESS: This is a 56-year-old female, currently on inpatient rehab. The patient was initially admitted to [facility] on 02/13/2017 after presenting with left-sided sharp chest pain and shortness of breath at her primary care physician's office. At that time, she continued to have a decrease in mental status and was sent to the ER for a CAT scan of her head showing an area of hemorrhage. Neurosurgery has seen the patient, with no intervention for right parietal ischemic CVA with hemorrhagic conversion. The patient continues to have expressive aphasia. She has been working well with therapy on rehab. During her hospitalization, a carotid duplex was obtained revealing peak velocities of 170/69 in her left internal carotid artery. Her right carotid was found normal on ultrasound with a 0% to 39% stenosis. Subsequently, we were consulted to address this left-sided stenosis. The patient reports a history of tobacco abuse. She denies any diabetic history. She denies any claudication, shortness of breath, chest pain, lightheadedness, or dizziness. Prior to CVA, she denies any TIAs or problems of weakness, vision changes or speech changes. She denies any nausea, vomiting, diarrhea, or abdominal pain. The patient's current concern is expressive aphasia. PAST MEDICAL HISTORY: 1. Lung cancer, status post pneumonectomy in 2009. 2. History of renal carcinoma status post left partial nephrectomy in 2016. 3. Hypertension. 4. Reflux esophagitis. 5. Depression. 6. Anxiety. 7. PTSD. SURGICAL HISTORY: 1. Sigmoid colectomy. 2. Appendectomy. 3. Left pneumonectomy. 4. Right adrenalectomy. PATIENT'S NAME: CONCHITA GREENE [facility] AGE: 56 Y [address] ROOM: [place] [address] LOCATION: [facility] ADMIT DATE: 02/19/2017 Consultation DISCHARGE DATE: FAMILY PHYSICIAN: PHYSICIAN, UNKNOWN ATTENDING PHYSICIAN: Leon Atkinson 5. Wedge resection right lower lobe, 2016. 6. Partial left nephrectomy. 7. Vocal cord augmentation. 8. CT-guided biopsy of right lung and left renal mass. 9. Vocal cord surgery. 10. Exploratory lap for bowel obstruction. FAMILY HISTORY: Grandmother with breast cancer, grandfather with lung cancer, and a grandfather with colon cancer. SOCIAL HISTORY: The patient reports occasional alcohol use. She is a former smoker of one pack per day x30 years. Quit 2010. She denies any illegal drug use. CURRENT MEDICATIONS: See medication records. ALLERGIES: PENICILLIN AND MORPHINE. REVIEW OF SYSTEMS: A 10-point review of systems completed, positives addressed in history of presenting illness. PHYSICAL EXAMINATION: VITAL SIGNS: Temperature 98.1, heart rate 85, respiratory rate 14, blood pressure 145/82, and oxygen saturations 96% on room air. GENERAL: She is alert and oriented x3, in no acute distress. Expressive aphasia and malnourished appearance. SKIN: Warm, pink, and dry. No rashes. HEENT: Head, normocephalic and atraumatic. Ears, without drainage. Eyes, sclerae white and conjunctivae pink. Extraocular movements intact. PERRLA. Nose, without drainage. Throat, oral mucosa pink and moist. No exudate or erythema. NECK: Without adenopathy. No evidence of JVD. No carotid bruit. Trachea midline. RESPIRATORY: Clear to auscultation bilaterally, even and nonlabored. CARDIOVASCULAR: Regular rate and rhythm. No murmur or extra sounds. GASTROINTESTINAL: Bowel sounds active x4. No nontender. No organomegaly. EXTREMITIES: No cyanosis. No edema. There are present varicosities to bilateral legs. Pulses palpable throughout. Active range of motion. NEUROLOGICAL: The patient moves all extremities on command. Answers questions. Sensation intact. PATIENT'S NAME: CONCHITA GREENE [facility] AGE: 56 Y [address] ROOM: [address] [address] LOCATION: [facility] ADMIT DATE: 02/19/2017 Consultation DISCHARGE DATE: FAMILY PHYSICIAN: PHYSICIAN, UNKNOWN ATTENDING PHYSICIAN: Demetrio,Leon M IMPRESSION AND PLAN: Left internal carotid artery stenosis. Velocities on ultrasound consistent with a 60% to 79% stenosis. The patient with a right-sided stroke not related to left side stenosis. The right carotids are normal without significant stenosis. The patient remains asymptomatic to the stenosis on her left side. Therefore, we recommend continuing the patient on aspirin and Lipitor. We recommend yearly repeat carotid duplex. Sooner evaluation would be warranted if the patient were to become symptomatic of left-sided stroke. Symptomatic carotids with 60% to 79% stenosis on ultrasound, would warrant a CTA of the carotids. At this time she is asymptomatic and there is no surgical intervention needed. Manage in the outpatient setting. Thank you for your consultation for allowing us to participate in the care of this patient. QUINTIN MEDINA APRN FOR ADAM CASTILLO MD TO/jacintol /[id number] d: 02/21/17 1842 t: 03/14/17 1054, CONSULTATION REPORT
[~2017-02-19 15:10] MED LIST changes: +PRED FORTE 1%5 ML OPHTH; +RESTASIS 0.05%1 VIAL OPHTH; +TYLENOL325 MG PO
--- NOTE | 2017-02-19 19:43 | NUR ---
Significant Event:Pt brought to unit per wheel chair accompanied by Rosita DONALDSON, and son Giovanni. Rosita DONALDSON reported pt is very aphasic, but is starting to say a few words, and expressing some needs, plus uses non verbals. Pt can be a little anxious @ times. Son reported pt had the stroke he thought a month ago, pt's parents were taking care of her, and they all thought it was a pinched nerve. Then when pt's father went to the clinic for a visit she also had a appoinment, and she was diagnosised stroke and admitted on the 02/13/17. Reports pt uses call light appropriately, reported she had a slt headache right gnosticist, and rib pain right lower rib area. Denied need of pain medication. No bruising found on lower right rib area, but tender when pushed on. Pt reports she has no urination problems, has some frequency. Denies any upset stomach, has some constipation. Has hx of renal CA, L nephrectomy. SL was removed before admission. Takes meds whole with water, Cardiac diet, reports has poor appetite. Note assessment charted. Pt denies smoking or drinking. Son reports he found cig. all over her house, he feels she is still smoking and drinking, and has very few family members that will help her anymore because of it. Also stated that his Grandparents can just take care of themselves, really not able to take care of pt. Rosita DONALDSON reported pt BP has been up, adjusted BP meds. Son reported he found her BP med was empty on the floor @ home and not sure when she last had any. Dr Corea had done a xray of her lungs, and found a nodule, no plan has been set. Pt participated in answering questions, and son very helpful, he lives in [place], and has DPOA. Follow up:UA, pain control, alarms to remind pt to call for assist.
--- NOTE | 2017-02-20 04:41 | NUR ---
Alert and oriented. Asphasic and diffulty finding words. Cooperative with cares. Had hs snack, but slept most of shift. Did well with one assist and gaitbelt. Balance is stable with generalized weakness. Denied need for pain meds. Takes pills whole in water. Still need UA, as it noted that this was not obtained until pt was asleep for the night. Slept well.
[2017-02-20 05:55] LABS: BASOPHIL # 0.1 K/uL (0.0-0.2); BASOPHIL % 0.7 %; EOSINOPHIL # 0.1 K/uL (0.0-0.5); EOSINOPHIL % 1.2 %; HEMATOCRIT 48.3 % (33.0-46.0); IMMATURE GRANULOCYTE % 0.3 %; LYMPHOCYTE # 0.5 K/uL (0.8-4.0); LYMPHOCYTE % 7.6 %; MCHC 33.1 gm/dL (32.0-36.5); MCV 102.8 fl (83.0-98.0); MONOCYTE # 0.8 K/uL (0.0-1.0); MONOCYTE % 11.2 %; NEUTROPHIL # (ANC) 5.4 K/uL (1.8-7.8); NRBC % 0 /100WBC (0-0.00); RDW-CV 13.6 % (11.9-14.6); WBC 6.9 K/uL (4.0-11.0)
[2017-02-20 05:57] LABS: PLATELET COUNT 184 K/uL (150-450)
[2017-02-20 06:09] LABS: ALBUMIN 2.7 gm/dL (3.5-5.0); ALK PHOS 92 IU/L (33-138); ALT 29 IU/L (12-78); BLOOD UREA NITROGEN 11 mg/dL (6-24); CHLORIDE 104 mMol/L (96-110); CO2 28 mMol/L (22-32); CREATININE 0.5 mg/dL (0.5-1.1); ESTIMATED GFR (MDRD EQUATION) > 60; SODIUM 139 mMol/L (135-145); TOTAL PROTEIN 6.4 g/dL (6.0-8.4)
[2017-02-20 06:14] LABS: ANION GAP 11.5 (10.0-19.0); AST 31 IU/L (10-40); POTASSIUM 4.5 mMol/L (3.7-5.1); TOTAL BILIRUBIN 0.3 mg/dL (0.0-1.5)
[2017-02-20 07:55] LABS: BILIRUBIN URINE NEGATIVE (NEGATIVE); BLOOD URINE NEGATIVE /UL (NEGATIVE); COLOR URINE YELLOW (YELLOW); GLUCOSE URINE NEGATIVE (NEGATIVE); KETONE URINE NEGATIVE (NEGATIVE); LEUKOCYTES URINE NEGATIVE /UL (NEGATIVE); NITRITE URINE NEGATIVE (NEGATIVE); PROTEIN URINE NEGATIVE (NEGATIVE); SPEC GRAVITY URINE 1.015 (1.003-1.035); TURBIDITY URINE CLEAR (CLEAR); UROBILINOGEN URINE NORMAL (NORMAL)
--- NOTE | 2017-02-20 10:22 | NUR ---
D: Therapeutic Recreation Initial Assessment on the 02/20/17. I: Patient seen for 2 units at 1023 to begin initial evaluation. Pt has recent dx of CVA with communication difficulty, aphasia. R: Patient's current living situation and status: house in town Home entrance steps: 2 Living with: alone Spouses name: divorce # of children: 2 Driving: yes, friend could drive pt Ambulating: I Equipment: N/A Hand Dominance: Right Dispensing Operator strength: reports R) side weakness Eye sight: glasses Reading ability: N/T Hearing: no problems Speech: some word finding Cognition: impaired Comprehension: fair Following directions: yes Initiating: at times Eye contact: good Affect: flat COMMUNITY INVOLVEMENT: grocery shopping, coffee with friends, visit with family/friends LEISURE INTERESTS: cards (solitaire), loves outdoors, dog - portillo, computer but doesn't use much, watch TV Patient is referred by medical staff for treatment and evaluation in the following areas: Community Skills, Functional Leisure Skills, Participation, Leisure Education/Behaviors, Family Education, Cognitive, Emotional. Information obtained: Interview, Chart Review, Observation, other. BARRIERS TO LEISURE: Social, Financial, Physical, Lifestyle (some alcohol use and hx of depression) Transportation Patient determined to be: APPROPRIATE FOR THERAPEUTIC RECREATION ASSESSMENT. TREATMENT WILL INCLUDE: Community living skills training Functional leisure development Physical skills development Cognitive skills development Social skills development Leisure education Emotional/behavioral adaptation Family education Community resources/packet TARGET EQUIPMENT/INFORMATION: Parking Permit assess need Community Resources Energy conservation in community setting Van/Service/Taxi Scrip Adapted Leisure Equipment Stress management/Relaxation techniques Functional car transfers Leisure Education Behaviors: Attitude, Awareness, Participation. Patient functional skills level and potential: Good, pt demonstrates fair mobility with concerns for coping and depression per hx. Patient oriented ot TR services on Rehab unit. Pt/family provided input into goals setting and plan of care. Pt's goal is to feel better, drive and communicate without difficulty. P: Target date set with personal goals established. Will continue with POC focusing on pt/family training and education. For additional information please see Nursing Data Base, PT, OT, CM, ST, initial assessments to [facility] and Interdisciplinary Assessments.
--- NOTE | 2017-02-20 17:10 | NUR ---
Significant Event:PATIENT ALERT AND ORIENTED THIS SHIFT. VSS. TRANSFERS WITH 1 ASSIST GAIT BELT HAND HELD. COMPLAINED OF PAIN THIS AM BUT REFUSED ANY KIND OF PAIN MEDS. TOLERATED THERAPIES WELL. IS HAVING A PET SCAN TOMORROW SO SHE IS ON A PET DIET. WAS ASSISTED IN ORDERING HER MEALS TODAY AND FOR TOMORROW. SHE IS A LITTLE IMPULSIVE AT TIMES AND DID TAKE HERSELF TO THE BATHROOM ONCE. ALARMS ON WHEN IN BED OR CHAIR. UA OBTAINED TODAY AND WAS WITHIN NORMAL LIMITS. NO OTHER COMPLAINTS. Follow up:
--- NOTE | 2017-02-21 04:38 | NUR ---
Patient alert and oriented. Transfers 1A hand hold. On special diet for PET scan today. Has difficulty finding words at times. Impulsive at times. Alarms, and stay close when in bathroom. Denies pain. Cooperative with cares.
--- NOTE | 2017-02-21 16:06 | NUR ---
Significant Event:PATIENT ALERT AND VSS. DIFFICULT TO FULLY ASSESS ORIENTATION. HAS SOME APHASIA AND HAS LOTS OF DIFFICULTY GETING WORDS OUT CORRECTLY ALL TIME. TRANSFERS WITH 1 ASSIST, GAIT BELT AND HAND HELD. FAIRLY STEADY ON FEET. NO OTHER COMPLAINTS. Follow up:
--- NOTE | 2017-02-22 05:50 | NUR ---
Significant Event: denies pain. up to bathroom with 1 hand held assist. steady gait. does all task in bathroom. has expressive aphasia. bruises to arms and hands. had PET scan done yesterday, dr Corea here and ordered consult for Dr Holt for non small cell ca of lung. lung sounds clear and diminished, absent to lll. Follow up:
--- NOTE | 2017-02-22 12:16 | NUR ---
D: TR progress note for 02/22/17. I: Pt seen for 2 units at 935 for community integration skills building, functional transfers, and safety awareness. R: Pt seen for functional skills building working on mobility, safety, and functional transfers to increase independence with mobility skills for community re-entry. Pt transferred sit > stand from WC SBA, ambulated to/from vehicle 5 feet SBA and transferred in/out of vehicle SBA with good recall on technique. Pt was SBA for BLE management and positioning of self with seat surface adapted using trash bag to ease task. Pt tolerated ride with no C/o pain, discomfort or problems with nausea. P: Will continue to see to address goals and plan of care.
--- NOTE | 2017-02-22 19:22 | NUR ---
Significant Event: Pt up in room with, 1 assist, sl unsteady, cherie. well. If pt in BR, wait outside to be ready to assist pt, as she will stand on own when ready. Pt continent of bowel and bladder. Tylenol this am at 0710. Pt emotional this afternoon after meeting with radiation MD today. He met with pt and pt's son (POMoy) to discuss treatment options. Pt takes meds whole with water. Expressive aphasia present. Pt voiced frustration with feeling like she didn't really understand what her treatment options or what the doctor had to say about her treatment. Pt pleasant and cooperative with cares. Follow up: safety, activity, treatment plan per oncology/radiation. Pain management
--- NOTE | 2017-02-23 05:21 | NUR ---
ALert and oriented, but forgetful at times. Uses call light appropriately. Up with gaitbelt and handheld assist. Slightly unsteady. Expressive asphasia. Dr Holt dicussed tx obtions for lung nodule with pt yest. A bit overwhelmed with all the info. No decisions made as of yet. Slept well with no c/o discomfort
--- NOTE | 2017-02-23 12:00 | NUR ---
A-SCREENED D/T LOS; NEW ADMIT TO [facility] NEW NON-SMALL CELL CA DX; TX PLAN BEING DECIDED HT: 63 IN. CBW (STANDING SCALE)-35.9 KG. ADMIT WT TO [facility] (WHEELCHAIR SCALE)-35.7 KG. IBW: 52 KG; 69% OF IBW. BMI: 13.9 LABS (02/20)-ALB 2.7, PREALB 19.0. PREALB UP FROM 14.0 ON 02/16 MEDS: MIRALAX, ZESTRIL, PROZAC, PROTONIX, VISTARIL, PRN BOWEL MEDS DIET RX: CARDIAC WITH CHOCOLATE ENSURE ENLIVE AT BRK, DINNER, AND PM SNACK. MAGIC CUP AT LUNCH. PO INTAKE OF MEALS HAS BEEN 25-100% W/AVG BEIN 69% SINCE ADMIT TO [facility]. INTAKE OF SUPPLMENTS IS 50-100%. EST NUTR NEEDS: 4068-2868 KCALS (35-40 KCALS/KG) 36-54 GM PROTEIN (1.0-1.5 GM/KG) 1 ML FLUID/KCAL D-AT NUTRITION RISK W/UNDERWEIGHT CLINICAL RESEARCH TECH R/T INDEQUATE INTAKE OF NUTRIENTS AEB BMI <16.0, INTAKE RECORDS. I-1)CONTINUE W/CURRENT SUPPLEMENTS 2)RECOMMEND LIBERALIZING DIET TO REGULAR D/T SEVERITY OF UNDERWEIGHT M/E-GOAL: PO INTAKE >/=75% BY DISCHARGE 1)F/U PO INTAKE, SUPPLEMENT, DIET RX, LABS, WT, AND POC IN 3-5 DAYS 2)ASSIST NEEDED
--- NOTE | 2017-02-23 15:38 | NUR ---
Significant Event:PATIENT ALERT AND ORIENTED THIS SHIFT. VSS. TRANSFERS WITH 1 ASSIST, GAIT BELT HAND HELD. HAS DENIED PAIN TODAY. UP IN CHAIR FOR MOST OF THE MORNING AND WORKED WITH THERAPY SEVERAL TIMES THIS AM. TOLERATED WELL. RESTED THIS AFTERNOON IN BED. IS FAIRLY STEADY ON HER FEET. NO OTHER COMPLAINTS. Follow up:
--- NOTE | 2017-02-24 03:26 | NUR ---
Significant Event:A/o. 1 ASSIST TRANSFER WITH GAITBELT. DENIES PAIN. MEDS WHOLE WITH WATER. VSS ON ROOM AIR. BED ALARM ON, SOME FORGETFULNESS IN CALL ING FOR ASSISTANCE. EXPRESSIVE APHASIA. BED ALARM ON. CALL LIGHT WITHIN REACH. WILL CONTINUE TO MONITOR. Follow up:
--- NOTE | 2017-02-24 16:26 | NUR ---
Significant Event: Patient alert and oriented. Up with standby assist. Voice is a whisper. No complaints. Follow up:
--- NOTE | 2017-02-25 04:54 | NUR ---
Significant Event:A/O. SBA. VOICE IS A WHISPER. STIFF LEGGED GAIT. BED ALARM ON. CALL LIGHT WITHIN REACH. Follow up:Held Apresoline for low BP.
[2017-02-25 06:31] LABS: BASOPHIL # 0.1 K/uL (0.0-0.2); BASOPHIL % 0.9 %; EOSINOPHIL # 0.1 K/uL (0.0-0.5); EOSINOPHIL % 1.3 %; HEMATOCRIT 50.9 % (33.0-46.0); HEMOGLOBIN 16.9 g/dL (10.0-15.0); IMMATURE GRANULOCYTE % 0.4 %; LYMPHOCYTE # 0.7 K/uL (0.8-4.0); LYMPHOCYTE % 10.9 %; MCH 33.7 pg (27.0-34.0); MCHC 33.2 gm/dL (32.0-36.5); MCV 101.6 fl (83.0-98.0); MONOCYTE # 0.7 K/uL (0.0-1.0); MONOCYTE % 10.7 %; MPV 9.6 fl (9.4-12.4); NEUTROPHIL # (ANC) 5.2 K/uL (1.8-7.8); NEUTROPHIL % 75.8 %; NRBC % 0 /100WBC (0-0.00); RBC 5.01 M/uL (3.50-5.50); RDW-CV 13.2 % (11.9-14.6); WBC 6.8 K/uL (4.0-11.0)
[2017-02-25 06:36] LABS: PLATELET COUNT 336 K/uL (150-450)
[2017-02-25 06:45] LABS: BLOOD UREA NITROGEN 20 mg/dL (6-24); CALCIUM 9.5 mg/dL (8.5-10.5); CHLORIDE 98 mMol/L (96-110); CO2 27 mMol/L (22-32); CREATININE 0.7 mg/dL (0.5-1.1); ESTIMATED GFR (MDRD EQUATION) > 60; SODIUM 134 mMol/L (135-145)
--- NOTE | 2017-02-25 16:41 | NUR ---
Significant Event: Pt up in room with cherie LÓPEZ. well. Wait outside of BR as pt will get up and off toilet unassisted. Aphasia present. Pt went for PFT this afternoon. Pt cooperative with cares. Pt refused miralax this am, said she just had a BM. Apresoline held both doses today. BP this afternoon was 90/58. Follow up: activity, safety, PFT results.
--- NOTE | 2017-02-26 03:25 | NUR ---
Patient alert and oriented. SBA for transfers. Meds whole with water. VSS on room air. Held Apresoline r/t BP. Denies pain. Bed alarm on. Call light within reach.
--- NOTE | 2017-02-26 10:53 | NUR ---
A-NUTRITION F/U CBW: 35.9 KG (STANDING SCALE); WT HAS BEEN STABLE LABS: PREALB 34; UP FROM 19.0 ON 02/22 NO NEW MEDS/CHANGES DIET RX: CARDIAC DIET W/ ENSURE ENLIVE TID AND MAGIC CUP QD. PO INTAKE OF MEALS 25-100%; AVG IS 54%. TAKING 50-100% (W/ONE REFUSAL) OF SUPPLEMENTS. EST NUTR NEEDS: [id number] KCALS AND 36-54 GM PROTEIN D-AT NUTRITION RISK W/UNDERWEIGHT JUNIOR UNDERWRITER R/T INADEQUATE INTAKE OF NUTRIENTS AEB BMI <16.0, INTAKE RECORDS I-CONTINUE W/CURRENT SUPPLEMENTS M/E-GOAL: PO INTAKE BETWEEN 50-75% FOR THE DURATION OF ADMIT 1)F/U PO INTAKE, SUPPLEMENT, WT AND LABS IN 5-7 DAYS 2)ASSIST NEEDED
--- NOTE | 2017-02-26 16:42 | NUR ---
D: TR progress note for 02/26/17. I: Pt seen for 2 units 1330 for leisure education, coping strategies, pain/stress management techniques and problems solving. R: Pt seen for functional skills building working on education for utilization of leisure involvement for pain/stress management, cognitive thinking task, and coping strategies to promote recovery and to increase independence with leisure task post discharge for time management. Pt started on new leisure task doing puzzles on computer. Pt able to operate mouse without difficulty using RUE, mod > max cues with typing using two-handed technique due to perseveration and mod cues for cognitive thinking and problem solving but independent for scanning. P: Will continue to see to address goals and plan of care.
--- NOTE | 2017-02-26 18:52 | NUR ---
Significant Event:PATIENT ALERT AND ORIENTED THIS SHIFT. VSS. TRANSFERS WITH SBA. IS STEADY ON HER FEET. HAS DENIED PAIN ALL SHIFT. MED CHANGES DONE TODAY WITH HER BLOOD PRESSURE MEDS. NO OTHER COMPLAINTS TODAY. Follow up:
--- NOTE | 2017-02-27 04:27 | NUR ---
Patient alert and oriented. Transfers with SBA. Takes meds whole with water. VSS. Denies pain. Impulsive at times, alarms. Cooperative with cares.
--- NOTE | 2017-02-27 11:47 | NUR ---
D: TR progress note for 02/27/17. I: Pt seen for 2 units at 1100 in group session for education on relaxation techniques, stress/pain management, coping strategies, group participation and leisure education. R: Pt seen for functional skills building working on relaxation techniques, stress/pain management, continued education on coping skills and sleep to promote recovery. Pt completed functional social communication skills independently which involved personal introduction of self and identification of past favorite Springtime activity. Education completed by verbal discussion and modeling on the signs and symptoms the physical stress/pain can cause on the body and it's affects along with identification of coping strategies, relaxation techniques using music, playaways, aromatherapy, labyrinthi, breathing exercises and leisure activities. Pt transferred sit > stand from WC SBA, pivoted to bed SBA and transferred into bed mod I. P: Will continue to see to address goals and plan of care.
--- NOTE | 2017-02-27 16:58 | NUR ---
Significant Event:PATIENT ALERT AND ORIENTED THIS SHIFT. VSS. HAS BEEN MADE MOD I IN ROOM TODAY. IS STEADY ON HER FEET. HAS DENIED PAIN. PLANS FOR PFT'S IN THE AM AT 7 SO WILL NEED TO BE DRESSING AND READY BEFORE AND RT WILL BE HERE BY 7 TO GET HER DOWN THERE FOR THE TESTING. NO OTHER COMPLAINTS. Follow up:
--- NOTE | 2017-02-28 05:00 | NUR ---
Patient alert and oriented. Mod I in room. Plans for PFT first thing in the morning at 0700. Is to be gone 2 hours and return for therapy. Denies pain. VSS. Cooperative with cares.
--- NOTE | 2017-02-28 13:11 | NUR ---
Significant Event: MOD I IN ROOM. ALERT AND ORIENTED X3. PULMONARY FUNCTION TESTS COMPLETED TODAY. FEEDS SELF WELL, NO ISSUES SWALLOWING. VITALS STABLE ON ROOM AIR. COOPERATIVE WITH CARES. HOPING FOR PLACEMENT SOON. DENIES PAIN. Follow up:
--- NOTE | 2017-02-28 14:51 | NUR ---
[facility] Case Management Prefunctioning and Psycho-Social Initial Assessment for 02/19/17 and Case Conference note for 02/26/17 D: Initial Picture Frames InspectorSterile Processing Tech and Case Conference Note. I: Input from: patient, family, Dr. Shane, Dr. Atkinson, Daniella Adame regional merchandising manager, and Jennifer Aldana MANAGER PROFESSIONAL DEVELOPMENT R: Reason for admission: CVA--right parietal hemorrhage and right frontal and cerebellar infarcts. Admission Date to [facility]: 02/19/17 Admission Date to Hospital: 02/13/17 Prior level of functioning: patient was independent with adl's and household prior to stroke. Prior living situation: one story house Financial resources/expectations: patient has medicare and [employer] Resources used: walk-in shower with shower chair, grab bars and front wheeled walker. Resources available: HHC, outpatient therapy, SNF, [facility], [facility], DME. Family support available: family Understands nature of health condition: yes Recognizes impact of health condition on lifestyle: yes Vocational/Educational: disabled Behavior/Emotional needs: cues for safety. Monitor for signs and symptoms of depression and anxiety. Son reports history of alcoholism and tobaccoism. Legal concerns: none. Discharge goal: [facility] Assessment: Nayeli is a 56 year old woman from [place], [place] admitted after a stroke. She has a hx of lung cancer. Has been living home alone which son is very concerned about. Plan is to d/c to [facility] is possible. Team conference was held on and plan is to d/c in 5-7 days. Will follow and assist as needed. Orientation to the program and CM services completed with Nayeli. Initial plan of care and estimated length of stay discussed, disclosure statement reviewed including patient assessment rights. P: Target date and individual goals established. Please see POC for details. For additional information please see Nursing Data Base, PT, OT, TR, ST, Initial assessments to [facility].
--- NOTE | 2017-03-01 03:39 | NUR ---
Significant Event: up mod I in room. steady gait. dneis pain. denies difficulty swallowing. PFT done . repositions self in bed. Follow up:
--- NOTE | 2017-03-01 12:04 | NUR ---
D: TR progress note for 03/01/17 I: Pt seen for 2 units at 1031 for community integration skills building, functional transfers, and safety awareness. R: Pt seen for functional skills building working on mobility, safety, and functional transfers to increase independence with mobility skills for community re-entry. Pt transferred sit > stand from WC mod I, ambulated to/from vehicle 30 feet SBA through automatic handicapped accessible enter want and on rough paved surfaces. Pt transferred in/out of vehicle independently with good recall on technique. Pt was mod I for BLE management and positioning of self with seat surface adapted using trash bag to ease task. Pt tolerated ride with no C/o pain, discomfort or problems with nausea with patient identifying [facility] she will discharge to. P: Will continue to see to address goals and plan of care.
--- NOTE | 2017-03-01 16:57 | NUR ---
Significant Event:PATIENT ALERT AND ORIENTED THIS SHIFT. VSS. TRANSFERS INDEPENDANTLY. IS STEADY ON HER FEET. HAS DENIED PAIN. RESTS IN BED BETWEEN THERAPIES. DR. HAYWOOD HERE TODAY TO TALK WITH PATIENT. WENT THROUGH THE OPTION OF RADIATION THERAPY. STATED HE WOULD CHECK IN ON SATURDAY AND SEE WHAT SHE DECIDED ABOUT IT. NO OTHER COMPLAINTS. Follow up:
--- NOTE | 2017-03-02 03:50 | NUR ---
Significant Event:Mod I in room, did have bed alarm on from 2200--0240 until pt got up to br and requested it to be left off. Steady while up. Denies pain. Weight 36.9 kg, up 1 kg from prior week. 100/58 Follow up: [place] will follow up on r/t radiation therapy options assoc with lung nodule.
--- NOTE | 2017-03-02 15:27 | NUR ---
Significant Event: Pt up in room mod I, cherie. well. Pt denied pain t/o day. Lisinopril held per parameter. Pt will meet with MD on to decide on radiation treatment option. Pt pleasant and cooperative with cares. Expressive aphasia present, but improving on word selection. Follow up: activity, safety,
--- NOTE | 2017-03-03 05:58 | NUR ---
Significant Event: denies pain. aphasic, has trouble with word finding at times. up MOD I, steady gait. had bed alarm on during night. slept for long intervals. Follow up:
--- NOTE | 2017-03-03 16:11 | NUR ---
Significant Event:PATIENT ALERT AND ORIENTED THIS SHIFT. VSS. TRANSFERS INDEPENDANTLY. HAS DENIED PAIN ALL DAY. RESTED IN BED ALL DAY. ATE MEALS ON EDGE OF BED THEN WOULD REST IN BED AGAIN. REPOSITIONS SELF. NO OTHER COMPLAINTS. Follow up:
--- NOTE | 2017-03-04 05:50 | NUR ---
Significant Event: denies pain., up MOD I in room. steady gait. voids without difficulty. rt) side slightly weaker. aphasic, has less difficulty with word finding than previous night. Follow up:
[2017-03-04 06:55] LABS: ALBUMIN 3.5 gm/dL (3.5-5.0); ALK PHOS 95 IU/L (33-138); ALT 64 IU/L (12-78); ANION GAP 11.9 (10.0-19.0); AST 34 IU/L (10-40); BLOOD UREA NITROGEN 21 mg/dL (6-24); CALCIUM 9.3 mg/dL (8.5-10.5); CHLORIDE 98 mMol/L (96-110); CO2 31 mMol/L (22-32); CREATININE 0.7 mg/dL (0.5-1.1); ESTIMATED GFR (MDRD EQUATION) > 60; POTASSIUM 4.9 mMol/L (3.7-5.1); SODIUM 136 mMol/L (135-145); TOTAL BILIRUBIN 0.4 mg/dL (0.0-1.5); TOTAL PROTEIN 7.6 g/dL (6.0-8.4)
--- NOTE | 2017-03-04 12:18 | NUR ---
Significant Event:Pt slept till am meal arrived. Ate meal in room with set up assist. Denies pain. Aphasic, says few words, trouble with word finding at times. Up Mod I assist, takes self to BR, steady on feet when observed. Returns to bed and rest between activity. Pt has been pleasant and cooperative with plan of care. Follow up:Encourage nutrition.
--- NOTE | 2017-03-05 04:02 | NUR ---
Significant Event: denies pain. up in room by self, mod I. aphasic, but getting better. steady gait. pleasant and cooperative. slept for long intervals. Follow up:
--- NOTE | 2017-03-05 09:01 | NUR ---
A-NUTRITION F/U MEETING W/MD TO DECIDE RADIATION TX PLAN CBW (STANDING SCALE): 36.9 KG; WT UP 1 KG FROM LAST WT LABS REVIEWED; PREALB 34.0 NO NEW MEDS DIET RX: CARDIAC. ENSURE ENLIVE TID AND MAGIC CUP QD. PO IATNKE 50-100%; AVG IS 82%. D-AT NUTRITION RISK W/UNDERWEIGHT R/T INADEQUATE NUTRIENT INTAKE SECONDARY TO POOR APPETITE VP PLATFORMS AEB BMI <16.0. I-CONTINUE W/CURRENT INTERVENTIONS M/E-GOAL: PO INTAKE >/=75% FOR DURATION OF ADMIT 1)F/U PO INTAKE, SUPPLEMENT, WT, LABS, AND POC IN 5-7 DAYS 2)ASSIST NEEDED
--- NOTE | 2017-03-05 13:57 | NUR ---
D: TR progress note for 03/05/17. I: Pt seen for 2 units at [facility] for leisure education, coping strategies, pain/stress management and discharge planning. R: Pt seen for functional skills building working on leisure education, coping skills, stress management and community skills to increase awareness of options post discharge. Pt transferred sit > stand from EOB independently, ambulated to/from session 180 feet SBA with cues for pathfinding as missed turn x2. Education and information given on use of leisure task/ recreational activities at [facility] for coping strategies and to assist with adjustment to new living environment along with rapport building to peers/staff plus to prompt recovery and cognitive stimulation. Discussed use for pain/stress management, fine motor skills, sequencing and relaxation techniques along with multiple options given. Pt had no questions or concerns at this time. P: Will continue to see to address goals and plan of care.
--- NOTE | 2017-03-05 14:09 | NUR ---
Significant Event:Forgetful, problems with word finding. Pleasant and cooperateive with cares. Good appetite, tolerating PO fluids and nutrition. Voiding without problems. [address] here to visit. Choosing to do radiation, [facility] and "she will come up with a treatment plan and follow up with the patient." Patient makes confusing patients about dismissal and hypertension, but able to make needs known. Follow up:Dismiss to [facility] tomorrow?
--- NOTE | 2017-03-06 02:19 | NUR ---
Significant Event:A/O. Some difficulty expressing thoughts; word finding. Mod I in room. Able to swallow pills whole w/ water. FIM shower done. Call light in reach. Bed alarm on. Follow up:Discharge to [facility] on 03/06. Radiation plans being made through the [facility].
--- NOTE | 2017-03-06 14:29 | NUR ---
Significant Event:PATIENT ALERT AND ORIENTED THIS SHIFT. VSS. TRANFERS INDEPENDANTLY. IS STEADY ON HER FEET. HAS DENIED PAIN THIS SHIFT. HAS BEEN UPSET TODAY BECAUSE SHE WAS NOT ABLE TO BE DC'D TO FACILITY. LATA IS STILL WORKING ON PLACEMENT. NO OTHER COMPLAINTS. Follow up:
--- NOTE | 2017-03-07 04:47 | NUR ---
Significant Event: Patient is alert and oriented. Has trouble with finding the right words due to Aphasis. Up MOD I in room. Patient is ready to be discharged but having trouble with placement. Denies pain or discomfort. Follow up:
--- NOTE | 2017-03-07 15:00 | NUR ---
Significant Event:PATIENT ALERT AND ORIENTED THIS SHIFT. VSS. TRANSFERS INDEPENDANTLY IN ROOM. COMPLAINS OF BEING BORED A LOT. THERAPY ONLY SCHEDULED THIS AM AND SHE WAS FRUSTRATED WITH THAT BUT PT CAME AND SPENT TIME WITH HER THIS AFTERNOON. MOTHER HERE TO VISIT AND BROUGHT HER A SHAKE. HAS DENIED PAIN ALL SHIFT. RESTS IN BED BETWEEN THERAPIES. NO OTHER COMPLAINTS. Follow up:
--- NOTE | 2017-03-08 03:14 | NUR ---
Significant Event: Patient alert and oriented with Aphasia. VSS. Up MOD I in room. Is alarmed at night for safety. Patient has no c/o of pain or discomfort. Does c/o of being bored. Is ready for discharge but having trouble finding placement. Possible discharge on Saturday. Follow up:
--- NOTE | 2017-03-08 14:06 | NUR ---
Significant Event: PATIENT UP AD JANN IN ROOM, TOLERATES THERAPY WELL. ALERT AND ORIENTED X3. VITALS STABLE ON ROOM AIR. DENIES PAIN. FEEDS SELF WELL. CONTINENT OF BOWEL AND BLADDER. SOME EXPRESSIVE APHASIA. HOPEFULLY DC'ING ON SATURDAY. Follow up:
--- NOTE | 2017-03-09 04:48 | NUR ---
Significant Event: Patient alert and oriented. Up ad kylah in room. VSS. Denies pain. Aphasic at times. D/C saturday? Cooperative with cares. Continent of bladder and bowel. Follow up:
--- NOTE | 2017-03-09 14:27 | NUR ---
Significant Event: Patient alert and oriented. Up ad kylah. Expressive aphasia.
--- NOTE | 2017-03-10 04:27 | NUR ---
Significant Event: Patient alert and oriented. Has some expressive aphasia. Up ad kylah in room. VSS. Denies pain. Cooperative with cares. Follow up:
--- NOTE | 2017-03-10 11:42 | NUR ---
D: Chief Contract Officer Team Conference Follow up for 03/05/17 I: Input from patient/family R: Met with: patient, family, Dr. Atkinson, Jennifer Aldana BUSINESS APPLICATIONS ANALYST Discussed rehab plan, patient progress, discharge plan and estimated length of stay of d/c planned soon when it can be arranged. Patient/Family Preference: patient is unhappy she is not going home, but has accepted our recommendation for [facility] Anticipated discharge disposition: [facility] vs. SNF. Education completed: Education was completed with patient and son Giovanni regarding length of stay, progress in therapy and d/c plan. Assessment/Recommendation: Team recommends d/c to [facility]. P: Case Coordination: Nayeli is a 56 year old woman from [place], [place] admitted after a stroke. Her son Giovanni helps to take care of patient's needs. Working on placement at [facility]; however, [facility] and [facility] have denied patient due to psychiatric concerns and recent [facility] stay. [facility] is looking at patient, but will only take to [facility] if she comes to SNF first. ID screen started---30 day exemption could not be used as she has had recent psychiatric hospitalization. Was approved by [facility], will d/c to [facility].
--- NOTE | 2017-03-10 15:42 | NUR ---
Significant Event: Patient alert and oriented. Up ad kylah in room. Expressive aphasia. Went on outing with family today.
--- NOTE | 2017-03-11 04:28 | NUR ---
Significant Event: Patient alert and oriented. Up AD kylah in room. Went out with family this evening. Has expressive aphasia. Denies pain. VSS. Cooperative with cares. Follow up:
[2017-03-11 06:24] LABS: ALBUMIN 3.2 gm/dL (3.5-5.0); ALK PHOS 80 IU/L (33-138); ALT 52 IU/L (12-78); BLOOD UREA NITROGEN 17 mg/dL (6-24); CHLORIDE 104 mMol/L (96-110); CO2 28 mMol/L (22-32); CREATININE 0.7 mg/dL (0.5-1.1); ESTIMATED GFR (MDRD EQUATION) > 60
[2017-03-11 06:27] LABS: ANION GAP 9.9 (10.0-19.0); AST 25 IU/L (10-40); POTASSIUM 4.9 mMol/L (3.7-5.1); SODIUM 137 mMol/L (135-145); TOTAL BILIRUBIN 0.3 mg/dL (0.0-1.5)
--- NOTE | 2017-03-11 18:06 | NUR ---
Significant Event:PATIENT ALERT AND ORIENTED THIS SHIFT. CAN BE FORGETFUL AT TIMES. VSS. TRANSFERS INDEPENDANTLY. PLAN IS FOR DISCHARGE TOMORROW. HAS DENIED PAIN. NO OTHER COMPLAINTS. Follow up:
--- NOTE | 2017-03-12 05:24 | NUR ---
Significant Event: denies pain. has expressive aphasia, but better. up mod I. dismiss today to Jaime, 10:30-11:00. steady gait. Follow up:
--- NOTE | 2017-03-12 11:07 | NUR ---
PATIENT WAS ADMITTED TO [facility] AT [facility] FOLLOWING A RT) POSTERIOR TEMPORAL INTRAPARENCHYMAL HEMMORHAGIC STROKE. ALSO HAS HISTORY OF HTN, LEFT LUNG CANCER WITH LEFT LOWER LOBECTOMY, RENAL CANCER, DEPRESSION. FOCUS ON INPATIENT REHAB HAS BEEN SPEECH THERAPY DUE TO EXPRESSIVE APHASIA. HAS BEEN UP MODIFIED INDEPENDENT WITHIN HER ROOM, SHOWERS AND TOILETS HERSELF. IS CONTINENT OF BOWEL AND BLADDER. MAKES HER NEEDS KNOWN WELL. VITALS STABLE ON ROOM AIR, CURRENTLY R15, HR 68, BP 129/76, 98.0, 93% RA. LEFT LOWER LUNG SOUNDS ABSENT, OTHER LUNG SOUNDS ALL CLEAR/DIM. DENIES PAIN. FOLLOW UP INFORMATION IN TRANSFER PACKET.
--- NOTE | 2017-03-14 15:02 | NUR ---
D: Jewelry Polisher Discharge Note for 03/12/17 I: Input from Patient/Family R: Patient to discharge On: 03/12/17 With: Luis braga. Disposition: SNF Resource Discussed: discussed options. Needed to do SNF transfer and then they will get [facility]. Therapy Recommendation: see therapy notes. Equipment Recommendations: see therapy notes. Financial Resources Used: patient has Medicare and [employer] medicaid. Other referrals: referral to [facility] for [facility] screen. Patient/Family education completed: prior to d/c. Patient/Family preference: in agreement. Plan of Care and Goal summary: met all goals except goal to return to home. P: Complete follow up within one week: will call to see how patient is doing next week.
== END 2017-03-12 11:55 | DRG 56 ==
LOC: GIRP 15:10
PROVIDERS: Internal Medicine; ADMIT Physical Medicine & Rehabilitation
PROC: F08Z4ZZ Home Management Treatment (ICD-10-PCS; principal; 2017-02-19)
PROC: F00 Physical Rehabilitation and Diagnostic Audiology, Rehabilitation, Speech Assessment (ICD-10-PCS; principal; 2017-02-19)
PROC: F07M6ZZ Therapeutic Exercise Treatment of Musculoskeletal System - Whole Body (ICD-10-PCS; principal; 2017-02-19)
PROC: F07Z9ZZ Gait Training/Functional Ambulation Treatment (ICD-10-PCS; principal; 2017-02-19)
DX: I69.120 Aphasia following nontraumatic intracerebral hemorrhage (principal); E43 Unspecified severe protein-calorie malnutrition; C34.31 Malignant neoplasm of lower lobe, right bronchus or lung; Z68.1 Body mass index [BMI] 19.9 or less, adult; R26.9 Unspecified abnormalities of gait and mobility; I10 Essential (primary) hypertension; I65.22 Occlusion and stenosis of left carotid artery; K21.9 Gastro-esophageal reflux disease without esophagitis; F32.9 Major depressive disorder, single episode, unspecified; Z85.118 Personal history of other malignant neoplasm of bronchus and lung; Z85.528 Personal history of other malignant neoplasm of kidney; Z79.82 Long term (current) use of aspirin; Z79.52 Long term (current) use of systemic steroids; Z87.891 Personal history of nicotine dependence; H04.123 Dry eye syndrome of bilateral lacrimal glands; J30.2 Other seasonal allergic rhinitis; K59.00 Constipation, unspecified
CPT/HCPCS: A9552; J1650